=== PATIENT | male | born 1985 | race Two or more races ===

== ENCOUNTER 2024-02-27 11:03 | Inpatient (IN) | payer MEDICAID, SELFPAY ==
[2024-02-27] VITALS (25 sets, daily range): BP systolic 118–168; BP diastolic 63–92; PULSE 58–97; RESP 20–40; TEMP 37.2–38.9; O2SAT 92–99; BMI 30.9
--- NOTE | 2024-02-27 11:13 | EDNOTE_ITS ---
ED SOB =RME/HPI General Chief Complaint: Shortness of Breath/Dyspnea Stated Complaint: difficulty breathing Time Seen by Provider: 02/27/24 11:19 Arrival date/time: 02/27/24 11:03 RME / HPI RME / HPI Narrative: 39 year old male with history of asthma?, GLADYS, pulmonary hypertension, obesity presents to the ED sent by PCP at [facility] for shortness of breath. States symptoms began last night and worsening this morning. Per the PCP office paperwork the patient was given Albuterol treatment, 2 rounds of 0.3mg Epinephrine and patient was still oxygenating at 79%. Related Data Allergies Allergy/AdvReac Type Severity Reaction Status Date / Time No Known Allergies Allergy Verified 06/01/23 20:24 Review of Systems Review of Systems Narrative Review of Systems: Constitutional: DENIES; Fevers Eyes: DENIES; Loss of vision Head/Ear/Nose: DENIES; Loss of hearing Throat: DENIES; Dysphagia Cardiovascular: DENIES; Chest pain, syncope Respiratory: SEE HPI +shortness of breath Gastrointestinal: DENIES; Rectal bleeding or melena. Genitourinary: DENIES; Dysuria (painful or difficult urination) Musculoskeletal: DENIES; Arthralgia (pain in a joint),; Skin: DENIES; Rash Neurological: DENIES; Loss of function or movement Psychiatric: DENIES; recent major life stressor, emotional problem, illicit drug use or abuse Endocrinology: DENIES; Weight change Hematologic/Lymphatic: DENIES; Abnormal bruising Allergic/Immunologic: DENIES; Urticaria (hives) Past Medical History Past Medical History CARDIAC: Negative Congestive Heart Failure RESPIRATORY: Positive Asthma; Negative Chronic Obstructive Pulmonary Disease (COPD) GENITOURINARY: Negative Renal Disease ENDOCRINE: Negative Diabetes Mellitus Type 1 or Diabetes Mellitus Type 2 Social History SMOKING STATUS: Never smoker ED Exam Narrative Physical exam: Physical Exam: General: The vital signs were reviewed. Patient is hypoxic in the upper 70s low 80s on room air comes up to the mid 90s once he is titrated with high flow to 25 L his mental status seems to be somewhat confused initially but improved with oxygenation. He has an obvious cough there is no stridor, he is well-developed with warm extremities. Temperature done soon after arrival reveals to have a fever. Heart rates in the 90s his blood pressure is within normal limits Head & Scalp: Normocephalic, atraumatic. Face: Appears normal and is without lesions, deformity. Ears: Left external pinna appears normal. Right external pinna appears normal. Eyes: The sclera is anicteric. No obvious photophobia. The Left and Right Orbit/Lid/Conjunctiva appears normal without swelling, discoloration or injection. Nose: The nose is without deformity, discharge or tenderness; Throat: Appears normal. The mucous membranes are pink and moist without exudates, redness or mass seen. The tongue appears normal. Neck: The neck is supple and no apparent mass or adenopathy. Chest: The chest wall is normal in size and symmetry and has no chest wall tenderness or crepitus. Tachypnea with bilateral rales in the mid and lower l leann smyth. There are some mild wheezing bilaterally breath sounds are diminished bilaterally but present Cardiovascular: Regular rate and rhythm; No murmurs, rubs, or gallops; Gastrointestinal: The abdomen appears normal. No obvious hernias or mass. The abdomen is soft and benign, non-distended, with no pain, no guarding and no rebound tenderness. Bowel sounds are present and normal sounding. No CVA tenderness. Genitourinary: Normal inspection Back/Spine: Normal inspection nontender Extremities/Musculoskeletal/lymphatic: The bilateral upper and lower extremities are warm. There is no evidence of arterial insufficiency. There is no evidence of venous insufficiency/edema. The patient spontaneously moves bilateral upper and lower extremities with no pain and no limitation of movement. There is no apparent, injury or trauma. Skin: The skin is warm, dry and intact. No rashes. No petechia. No purpura. No abnormal bruising. The color is appropriate with no cyanosis. Mental status/Psychiatric: Mental status is appears to have a dull affect but answering questions and engaging accordingly. Neurological: The patient is awake, alert, interactive, cordial, cooperative and is oriented to name and situation. The patient follows commands and answers historical question with no impairment. There is no visual disturbance apparent. The pupils are equal and reactive bilaterally with normal eye movements and no diplopia The bilateral upper and lower extremities have normal strength, normal range of motion and normal functioning. The gait, station and balance were not tested due to acuity Course Course Course Narrative: chest xray ordered to help determine etiology of shortness of breath. Quality Measures none Orders Category Date Time Status Admit to Inpatient Status Routine Admission 02/27/24 16:18 Active Patient Condition Routine Admission 02/27/24 16:18 Ordered Bedside Blood Glucose NOW Care 02/27/24 11:19 Active Bedside COVID-19 Antigen Test NOW Care 02/27/24 11:25 Active Bedside Influenza A&B Antigen Test NOW Care 02/27/24 11:25 Completed BiPAP / CPAP NOW Care 02/27/24 16:[address] Screening NOW Care 02/27/24 16:18 Active EKG (ED ONLY) *Do not use* NOW Care 02/27/24 11:19 Completed Notify provider NEEDED Care 02/27/24 16:[address] chest w con Stat Exams 02/27/24 16:17 Ordered EKG (ED Only) Stat Exams 02/27/24 11:19 Ordered XR chest 1V portable Stat Exams 02/27/24 11:19 Completed ABG [Arterial Blood Gas] Stat Lab 02/27/24 16:09 Completed Alcohol, Blood Medical Stat Lab 02/27/24 11:20 Completed Ambulatory Hemoglobin A1C Routine Lab 02/27/24 Ordered B-Type Natriuretic Peptide Stat Lab 02/27/24 11:36 Completed Blood Culture (Lab) Stat Lab 02/27/24 11:20 Received CBC AM DRAW Lab 02/28/24 05:00 Ordered CBC AM DRAW Lab 02/29/24 05:00 Ordered CBC AM DRAW Lab 03/01/24 05:00 Ordered CBC Stat Lab 02/27/24 11:20 Completed Comprehensive Metabolic Panel AM DRAW Lab 02/28/24 05:00 Ordered Comprehensive Metabolic Panel AM DRAW Lab 02/29/24 05:00 Ordered Comprehensive Metabolic Panel AM DRAW Lab 03/01/24 05:00 Ordered Comprehensive Metabolic Panel Stat Lab 02/27/24 11:20 Completed Drug Screen,Urine Stat Lab 02/27/24 12:15 Completed Lactate (Lactic Acid) Stat Lab 02/27/24 11:36 Completed Magnesium AM DRAW Lab 02/28/24 05:00 Ordered Magnesium AM DRAW Lab 02/29/24 05:00 Ordered Magnesium AM DRAW Lab 03/01/24 05:00 Ordered Phosphorous AM DRAW Lab 02/28/24 05:00 Ordered Phosphorous AM DRAW Lab 02/29/24 05:00 Ordered Phosphorous AM DRAW Lab 03/01/24 05:00 Ordered Procalcitonin Stat Lab 02/27/24 11:20 Completed Prothrombin Time with INR Stat Lab 02/27/24 11:20 Completed RSV [Respiratory Syncytial Virus Ag] Stat Lab 02/27/24 12:00 Completed RSV [Respiratory Syncytial Virus Ag] Stat Lab 02/27/24 12:44 Ordered Sputum Culture and Gram Stain Stat Lab 02/27/24 16:24 Ordered Troponin I Stat Lab 02/27/24 11:20 Completed Type and Screen Stat Lab 02/27/24 11:36 Completed Urinalysis, C/S if Indicated Stat Lab 02/27/24 12:15 Completed Venous Blood Gas Stat Lab 02/27/24 11:36 Completed ALBUTEROL RT 0.5ml [Proventil Rt 0.5ml] Med 02/27/24 11:19 Discontinued 10 mg INH X1 ONE Acetaminophen Tab [Tylenol ES Tab] Med 02/27/24 12:45 Discontinued 1,000 mg PO X1 ONE Acetaminophen Tab [Tylenol Tab] Med 02/27/24 16:18 Active 650 mg PO Q6H PRN Acetaminophen Tab [Tylenol Tab] Med 02/27/24 16:18 Active 650 mg PO Q6H PRN Albuterol/Ipratr Rt Leeanne [Duoneb Rt Leeanne] Med 02/27/24 19:00 Ordered 3 ml INH Q4HRRT Azithromycin Inj [Zithromax Inj] 500 mg Med 02/27/24 16:25 Discontinued Sodium Chloride 0.9% 250 ml [Ns] 250 ml IV QDAY Azithromycin Po [Zithromax PO] Med 02/27/24 16:45 Active 500 mg PO QDAY Docusate Sod [Colace] Med 02/27/24 16:30 Active 100 mg PO QDAY Ipratropium Frazee Rt Leeanne [Atrovent Rt Leeanne] Med 02/27/24 11:19 Discontinued 0.5 mg INH X1 ONE Lactulose Syrup [Enulose Syrup] Med 02/27/24 16:30 Discontinued 10 gm PO QDAY Lactulose Syrup [Enulose Syrup] Med 02/27/24 21:00 Active 20 gm PO BID MethylPREDNISolone.* [SoluMEDROL Inj] Med 02/27/24 11:19 Discontinued 125 mg IVP X1 ONE Morphine Inj Med 02/27/24 16:18 Active 1 mg IVP Q4H PRN Ondansetron Inj [Zofran Inj] Med 02/27/24 16:18 Active 4 mg IV Q6HR PRN Pantoprazole [Protonix] Med 02/28/24 09:00 Active 40 mg PO QDAY Piper/Tazo 3.375 gm [Zosyn] Med 02/27/24 12:12 Discontinued 3.375 gm in 50 ml IV X1 Sodium Chloride 0.9% 1000 ml [Ns] 1,000 ml Med 02/27/24 16:27 Active IV 999 mls/hr Sodium Chloride 0.9% 1000 ml [Ns] 2,000 ml Med 02/27/24 11:19 Active IV 150 mls/hr Sodium Chloride Rt Leeanne 10% [NS Rt Leeanne 10%] Med 02/27/24 16:24 Discontinued 5 ml INH X1 ONE Vancomycin Inj 1,000 mg Med 02/27/24 12:12 Discontinued Sodium Chloride 0.9% 250 ml [Ns] 250 ml IV X1 cefTRIAXone/D5w 1gm IV premix [Rocephin/D5w 1gm IV Med 02/27/24 16:25 Active premix] 50 ml IV Q12HR Code Status Routine Oth 02/27/24 16:18 Ordered Oxygen Delivery NOW RT 02/27/24 11:30 Active Sputum Induction PRN RT 02/27/24 16:30 Ordered Vital Signs Vital signs: Vital Signs Temperature 101.8 F H 02/27/24 11:20 Pulse Rate 93 02/27/24 11:20 Respiratory Rate 35 H 02/27/24 11:20 Blood Pressure 149/92 H 02/27/24 11:20 Pulse Oximetry (%) 92 L 02/27/24 11:20 Oxygen Delivery Method Oxy Mask 02/27/24 11:20 Oxygen Flow Rate 15 02/27/24 11:20 Shortness of Breath / Dyspnea MDM Narrative MDM Narrative:: Rocio Hays am scribing for and in the presence of Dr. Ferrari. Patient 39-year-old who presents with tachypnea hypoxemia short of breath fever with a chest x-ray read by myself reveals bilateral infiltrates in the lower lung smyth. The heart size appears to be a little bit larger than normal. There is no effusion seen. Soft tissues and bony structures appear to be intact. Twelve-lead EKG was done earlier which reveals a sinus rhythm rate [address] elevation IA. Patient got continuous breathing treatments for the mild wheezing and there seems to be some improvement although he still requires high flow oxygen. Further medical workup reveals blood alcohol negative drug screen negative. Urinalysis was positive for only 4 red cells no white cells were seen. He is quite dehydrated specific already of 1038. BNP was elevated 547 troponin is negative. AST ALT are negative BUN 11 creatinine 1.0 electrolytes are within normal limits. Venous blood gas shows pH of 7.43 pCO2 of 45 therefore there is no significant respiratory acidosis and minimal CO2 retention White count came back elevated 21.7. Reevaluation of patient shows his breathing to be much improved. Because of the white count respiratory distress hypoxemia bilateral pneumonia and fever he was started on Vanco and Zosyn to cover for sepsis. COVID and influenza came back negative. Hospitalist was contacted at 1535 hrs. and they will admit the patient for bilateral pneumonia hypoxemia Because of the respiratory distress and significant hypoxemia and pneumonia there is a critical care patient. Patient data External records reviewed:: [facility] previous records (I reviewed admission from 09/14/2023 through 09/16/2023) and PCP records (I reviewed paperwork from ofice visit today ) Clinical information provided by:: patient Social determinants that could affect healthcare access:: none Patient has the following chronic illnesses:: asthma?, GLADYS, pulmonary hypertension, obesity How is presenting disease/condition affected by chronic disease/condition?: exacerbated by Evaluation data The following diagnostics were reviewed and interpreted by me:: lab results, radiology exam(s) and EKG tracing(s) (Sinus rhythm, rate 84, no STEMI ) Lab and/or radiology exams considered but not ordered:: None Interpretation Summary: Ordering Physician: Sinan Ferrari MD Date of Service: 02/27/24 Procedure(s): XR chest 1V portable Accession Number(s): [id number] cc: Yifan Diego MD; Sinan Ferrari MD; Jonathan Powers MD~ Examination: AP chest single view TECHNIQUE: AP portable semiupright chest single view Exam date and time: February 27, 2024 1121 hours Comparison September 14, 2023 INDICATIONS: Onset chest pain today. FINDINGS: Mild enlargement cardiac contour Prominent vascular congestion Early pneumonia at the lung bases IMPRESSION: Early pneumonia at the lung bases Dictated By: Jonathan Powers MD Signed By: <Electronically signed by Jonathan Powers MD in OV> 02/27/24 1138 Medications / Prescriptions Medications or Prescriptions considered but not ordered:: None Medication administrations:: Medication Administration History Acetaminophen (Acetaminophen 325 Mg Tablet) 650 mg PO Q6H PRN PRN Reason: Fever >101.5 Stop: 03/28/24 16:17 Acetaminophen (Acetaminophen 325 Mg Tablet) 650 mg PO Q6H PRN PRN Reason: PAIN SCALE 1-3 (mild Stop: 03/28/24 16:17 Albuterol/Ipratropium (Albuterol/Ipratropium (Duoneb) Rt Leeanne 3 Ml Nebu) 3 ml INH Q4HRRT DEWAYNE Stop: 03/28/24 18:59 Azithromycin (Azithromycin 250 Mg Tablet) 500 mg PO QDAY DEWAYNE Stop: 03/05/24 16:44 Docusate Sodium (Docusate Sod 100 Mg Capsule) 100 mg PO QDAY DEWAYNE; Protocol Stop: 03/28/24 16:29 Sodium Chloride (Ns) 2,000 mls @ 150 mls/hr IV .[id number] ONE Stop: 02/28/24 00:38 Last Admin: 02/27/24 11:33 Dose: 150 mls/hr Documented By: VG Ceftriaxone Sodium/Dextrose (Rocephin/D5w 1gm Iv Premix) 50 mls @ 100 mls/hr IV Q12HR DEWAYNE Stop: 03/05/24 16:24 Sodium Chloride (Ns) 1,000 mls @ 999 mls/hr IV .Q1H1M ONE Stop: 02/27/24 17:27 Lactulose (Lactulose Syrup 20 Gm/30 Ml Udc) 20 gm PO BID DEWAYNE; Protocol Stop: 03/28/24 20:59 Morphine Sulfate (Morphine Sulf Inj 10 Mg/Ml Vial) 1 mg IVP Q4H PRN PRN Reason: PAIN SCALE 7-10 (Severe Stop: 03/03/24 16:17 Ondansetron HCl (Ondansetron Inj 2 Mg/Ml Inj 2 Ml) 4 mg IV Q6HR PRN; Protocol PRN Reason: NAUSEA OR VOMITING Stop: 03/28/24 16:17 Pantoprazole Sodium (Pantoprazole 40 Mg Tablet) 40 mg PO QDAY DEWAYNE Stop: 03/29/24 08:59 Discontinued Medications Acetaminophen (Acetaminophen 500 Mg Tablet) 1,000 mg PO X1 ONE Stop: 02/27/24 12:46 Last Admin: 02/27/24 12:52 Dose: 1,000 mg Documented By: VG Albuterol (Albuterol Rt 2.5 Mg/0.5 Ml Nebu) 10 mg INH X1 ONE Stop: 02/27/24 11:20 Last Admin: 02/27/24 11:40 Dose: 10 mg Documented By: EV Vancomycin HCl 1,000 mg/ (Sodium Chloride) 250 mls @ 250 mls/hr IV X1 ONE Stop: 02/27/24 13:11 Last Infusion: 02/27/24 16:07 Dose: Infused Documented By: Admin: 02/27/24 13:44 Dose: 250 mls/hr Documented By: VG Piperacillin/Tazobactam/Dextrose (Zosyn) 3.375 gm in 50 mls @ 100 mls/hr IV X1 ONE Stop: 02/27/24 12:41 Last Infusion: 02/27/24 13:38 Dose: Infused Documented By: Admin: 02/27/24 12:53 Dose: 100 mls/hr Documented By: VG Azithromycin 500 mg/ Sodium (Chloride) 250 mls @ 250 mls/hr IV QDAY DEWAYNE Stop: 03/05/24 16:24 Ipratropium Frazee (Ipratropium Rt 0.5 Mg/ 2.5 Ml Nebu) 0.5 mg INH X1 ONE Stop: 02/27/24 11:20 Last Admin: 02/27/24 11:40 Dose: 0.5 mg Documented By: EV Lactulose (Lactulose Syrup 20 Gm/30 Ml Udc) 10 gm PO QDAY [facility]; Protocol Stop: 03/28/24 16:29 Methylprednisolone Sodium Succinate (Methylprednisolone Sod Succ 62.5 Mg/Ml 2ml Vial) 125 mg IVP X1 ONE Stop: 02/27/24 11:20 Last Admin: 02/27/24 11:24 Dose: 125 mg Documented By: VG Sodium Chloride (Sodium Chloride Rt 10% 15 Ml Nebu) 5 ml INH X1 ONE Stop: 02/27/24 16:25 See above Consultations Consultation(s) initiated? (list below): Yes Consultation #1 (Physician, Specialty, Details): See above under MDM narrative. Diagnosis Shortness of Breath Differential Diagnosis: acute exacerbation of chronic obstructive airways disease, congestive heart failure, community acquired pneumonia and other (Viral illness ) Most likely diagnosis given after review of the tests above:: Bilateral pneumonia CHF Acute respiratory distress Hypoxemia Leukocytosis Admission Indicated Admission indicated?: indicated Admission Request Was there a request for admission?: Yes Admission Attestation Admission request attestation: Discussed case with [] from Hospitalist service regarding admission. Discussed patients ED course, exam findings, labs, and radiology results. The Hospitalist [agrees,declines] to accept the patient for admission. Disposition Plan Disposition Plan: Admit Critical Care Time Critical Care Time Critical Care Time: Yes Total Critical Care Time (min.): 55 Attestation: The high probability of sudden, clinically significant deterioration in the patient's condition required the highest level of my preparedness to intervene urgently. The services I provided to this patient were to treat and/or prevent clinically significant deterioration. Services included the following: chart data review, reviewing nursing notes and/or old charts, documentation time, technical support consultant collaboration regarding findings and treatment options, medication orders and management, direct patient care, vital sign assessments and ordering, interpreting and reviewing diagnostic studies and lab tests. Aggregate critical care time includes only time during which I was engaged in work directly related to the patient's care, as described above, whether at bedside or elsewhere in the Emergency Department. It did not include time spent performing other reported procedures or the services of residents, students, nurses or physician assistants. Discharge Plan Plan Patient Disposition: Admit Acute Care w/in Hospital Disposition Comment: Dr. Alonso Prescriptions/Referrals Referrals: Yifan Diego MD [Primary Care Provider] - In 1 week Problem List Clinical Impression: Bilateral pneumonia, Congestive heart failure, Acute respiratory distress, Hypoxemia, Leukocytosis Patient/Caregiver Discharge Instructions Print Language: French
--- NOTE | 2024-02-27 11:19 | XR_ITS ---
Examination: AP chest single view TECHNIQUE: AP portable semiupright chest single view Exam date and time: February 27, 2024 1121 hours Comparison September 14, 2023 INDICATIONS: Onset chest pain today. FINDINGS: Mild enlargement cardiac contour Prominent vascular congestion Early pneumonia at the lung bases IMPRESSION: Early pneumonia at the lung bases
--- NOTE | 2024-02-27 11:19 | EKG_ITS ---
[facility] Test Date: 2024-02-27 Pat Name: JESENIA DELGADO Department: Room: - Gender: Male Slots Manager: : 1985 Requested By: Sinan Ferrari Order Number: [id number] Reading MD: Sinan Ferrari Measurements Intervals [place] Rate: 73 P: 68 RI: 150 QRS: 86 QRSD: 102 T: 13 QT: 379 QTc: 419 Interpretive Statements SINUS RHYTHM MODERATE T-WAVE ABNORMALITY, CONSIDER ANTERIOR ISCHEMIA [-0.1+ mV T WAVE IN V3/V4] No previous ECG available for comparison /store/S0/[id number].pdf
[2024-02-27] MEDS: MethylPREDNISolone SOD SUCC 62.5 MG/ML 2ML VIAL 125 MG IVP (11:24)
[2024-02-27] MEDS: SODIUM CHLORIDE 0.9% 1000 ML 2,000 ML 150 ML IV (11:33)
[2024-02-27] MEDS: ALBUTEROL RT 2.5 MG/0.5 ML NEBU 10 MG INH ×2 (11:40→17:06)
[2024-02-27] MEDS: IPRATROPIUM RT 0.5 MG/ 2.5 ML NEBU INH (11:40)
[2024-02-27 11:50] LABS: Lactate (Lactic Acid) 1.8 mMol/L (0.4-2.0)
[2024-02-27 11:51] LABS: Base Excess, Venous 4 (-3-3); O2 Saturation, Venous 97 % (96-97); PCO2, Venous 45 mmHg (36-56); PO2, Venous 92 mmHg (15-58); pH, Venous 7.43 (7.33-7.66)
[2024-02-27 11:52] LABS: Basophils # (Auto) 0.1 Thou/mm3 (0.0-0.2); Basophils % (Auto) 0 % (0-2.5); Eosinophils # (Auto) 0.1 Thou/mm3 (0.0-0.5); Eosinophils % (Auto) 0 % (0-10); Hematocrit 49.3 % (41.0-53.0); Hemoglobin 15.9 g/dL (13.5-16.0); Immature Granulocytes % (Auto) 1 % (0-0); Immature Granulocytes Auto 0.14 Thou/mm3 (0.00-0.00); Lymphocytes % (Auto) 9 % (10-50); Mean Corpuscular HGB Conc 32.3 g/dl (31.0-37.0); Mean Corpuscular Hemoglobin 31.1 pg (25.0-35.0); Mean Corpuscular Volume 96 fL (80-100); Monocytes # (Auto) 1.8 Thou/mm3 (0.0-0.8); Monocytes % (Auto) 8 % (0-12); Neutrophils # (Auto) 17.6 Thou/mm3 (1.8-7.7); Neutrophils % (Auto) 81 % (37-80); Nucleated Red Blood Cell % 0 /100 WBC (0); Platelet Count 245 Thou/mm3 (140-440); RDW Standard Deviation 47.5 fL (35.1-43.9); Red Blood Count 5.12 Miln/mm3 (4.50-5.90); White Blood Count 21.7 Thou/mm3 (3.8-10.6)
[2024-02-27 12:10] LABS: B-Type Natriuretic Peptide 547 pg/mL (0-100)
[2024-02-27 12:12] LABS: INR 1.1 (0.9-1.3); Prothrombin Time 11.9 Seconds (9.0-12.2)
[2024-02-27 12:18] LABS: Alanine Aminotransferase 32 U/L (10-49); Albumin, Serum 4.4 gm/dL (3.5-5.0); Albumin/Globulin Ratio 1.4 (1.2-2.2); Alcohol, Blood Medical < 3.0 mg/dL (0-10.0); Alkaline Phosphatase 102 U/L (46-116); Anion Gap 4 (7-16); Aspartate Amino Transferase 23 U/L (0-34); BUN/Creatinine Ratio 11 Ratio (12-20); Bilirubin,Total 0.8 mg/dL (0.3-1.2); Blood Urea Nitrogen 11 mg/dL (9-23); Calcium 8.9 mg/dL (8.3-10.6); Calcium (Corrected) 8.9 mg/dL (8.5-10.1); Carbon Dioxide 33.8 mMol/L (20.0-31.0); Chloride 100 mMol/L (98-107); Globulin 3.1 gm/dL (2.3-3.5); Glucose 140 mg/dL (74-106); Osmolality,Calculated 277 (275-295); Procalcitonin 0.15 ng/ml (0.0-0.49); Sodium 138 mMol/L (136-145); Total Protein 7.5 gm/dL (5.7-8.2); Troponin I 0.027 ng/mL (0.0-0.045); eGFR > 60 See Note
[2024-02-27 12:38] LABS: Bilirubin,Urine Negative (Negative); Blood,Urine Negative (Negative); Clarity,Urine Clear (Clear/Hazy); Collection Type, Urine Clean Catch; Color,Urine Yellow (Lt Yel-Yel); Culture Indicated,Urine Not Indicated; Glucose, Urine Negative (Negative); Ketones,Urine Negative (Negative); Leukocyte Esterase,Urine Negative (Negative); Nitrite,Urine Negative (Negative); Protein,Urine 1+ (Neg - Trace); RBC,Urine 4 /hpf (0-3); Specific Gravity,Urine 1.038 (1.001-1.035); Squamous Epithelial Cell,Urine 1 /hpf (0-5); Urobilinogen,Urine Negative mg/dL (0.0-1.0); WBC,Urine 1 /hpf (0-5)
[2024-02-27 12:44] LABS: Amphetamine/Methamp Scrn,U Negative (Negative); Barbiturate Screen,Urine Negative (Negative); Benzodiazepines Screen,Urine Negative (Negative); Benzoylecgonine Screen, Ur Negative (Negative); Fentanyl Screen,Urine Negative (Negative); Opiate Screen,Urine Negative (Negative); THC Screen,Urine Negative (Negative)
[2024-02-27] MEDS: ACETAMINOPHEN 500 MG TABLET 1000 MG PO (12:52)
[2024-02-27] MEDS: PIPER/TAZO 3.375 GM 3.375 GM/50 ML BAG IV (12:53)
[2024-02-27 13:12] LABS: Respiratory Syncytial Virus Ag Negative (Negative)
[2024-02-27] MEDS: Vancomycin Inj 1,000 MG in SODIUM CHLORIDE 0.9% 250 ML 250 ML 250 MG IV (13:44)
--- NOTE | 2024-02-27 16:17 | XR_ITS ---
Examination: CT chest with intravenous contrast 2-D sagittal and coronal reconstructions Exam date and time: February 27, 2024 1818 hrs. Comparison September 14, 2023 Indications: Acute shortness of breath beginning yesterday CTDI:vol (mGy) 17.6 DLP: (mGycm) 645 Technique: Multiple axial sections of the thorax have been obtained. Sections have been obtained, 3 mm slice thickness. Mediastinal and lung density settings have been obtained. Intravenous contrast administered, 60 cc Isovue-370. 2-D sagittal, coronal images obtained. Low dose protocols were performed. One or more of the following dose reduction techniques were used; automated exposure control, adjustment of the mA and/or KV according to patient size, use of iterative reconstruction technique. Findings: No thoracic aortic aneurysmal dilatation or dissection Enlarged main pulmonary artery segment 37 mm, no pulmonary artery emboli on this non-CTA study Significant edema and/or pneumonia in the mid and lower lung zones bilaterally Moderate vascular congestion Diffuse fatty infiltration throughout the liver, liver is mildly irregular in contour No gallstones Spleen not enlarged No pancreatic or adrenal mass Kidneys partially visualized no hydronephrosis Impression: Significant bilateral pneumonia Suspicious for mild associated heart failure
[2024-02-27 16:23] LABS: Base Excess 3 (-3-3); HCO3 33 mEq/L (20-26); Inspired Oxygen, FIO2 65 %; O2 Saturation 98 % (91-98); PCO2 74 mmHg (32.0-48.0); PO2 101 mmHg (83-108); pH, Arterial 7.27 (7.35-7.45)
[2024-02-27 16:28] LABS: Allen Test Performed/OK; Puncture Site Left Radial
--- NOTE | 2024-02-27 16:29 | PD.RESHP ---
Documentation for date of: 02/27/24 [facility] History of Present Illness History of present illness: This is a 39-year-old male PMHx of questionable asthma, GLADYS, pulmonary hypertension, obesity presenting to ED with SOB. He was in normal state of health until this morning when he woke up with sudden SOB, and blood stingy cough as well as yellow sputum. He was seen by his PCP today for his SOB and was given ALBUTEROL x 2 as well as EPINEPHRINE without resolution of his symptoms, continued to desat 79% after treatment. He works in the [employer]. He states his son had respiratory illness couple weeks ago which has resolved. Denies headaches, confusion, fever, chills, chest pain, abdominal pain, N/V/D/C, or urinary symptoms. ED COURSE: BP 149/92, HR 93, RR 35, T101.8, satting 92% on 15 L 70% FiO2. Labs showed leukocytosis of 21.7, Exam Vital Signs Temp Pulse Resp BP Pulse Ox O2 Del Method O2 Flow Rate 99.4 F 65 29 H 133/83 H 98 High Flow Nasal Cannula 25 02/27/24 16:00 02/27/24 16:00 02/27/24 16:00 02/27/24 16:00 02/27/24 16:00 02/27/24 16:00 02/27/24 13:58 FiO2 65 02/27/24 16:00 Results: Labs 02/27/24 11:20 02/27/24 11:20 Labs: Short CBC 02/27/24 Range/Units 11:20 WBC 21.7 H (3.8-10.6) Thou/mm3 Hgb 15.9 (13.5-16.0) g/dL Hct 49.3 (41.0-53.0) % Plt Count 245 (140-440) Thou/mm3 BMP 02/27/24 11:20 Sodium 138 Potassium 4.0 Chloride 100 Carbon Dioxide 33.8 H BUN 11 Creatinine 1.0 Glucose 140 H Calcium 8.9 Cardiac Enzymes 02/27/24 Range/Units 11:20 Troponin I 0.027 (0.0-0.045) ng/mL Liver Function 02/27/24 Range/Units 11:20 Total Bilirubin 0.8 (0.3-1.2) mg/dL AST 23 (0-34) U/L ALT 32 (10-49) U/L Alkaline Phosphatase 102 (46-116) U/L Albumin 4.4 (3.5-5.0) gm/dL Urine 02/27/24 Range/Units 12:15 Urine Color Yellow (Lt Yel-Yel) Urine Clarity Clear (Clear/Hazy) Urine pH 6.0 (5.0-7.0) Ur Specific [place] 1.038 H (1.001-1.035) Urine Protein 1+ A (Neg - Trace) Urine Glucose (UA) Negative (Negative) ABG Interpretation ABG results: 02/27/24 02/27/24 11:36 16:09 ABG pH 7.27 L ABG pCO2 74 H* ABG pO2 101 ABG HCO3 33 H ABG O2 Saturation 98 ABG Base Excess 3 VBG pH 7.43 VBG pCO2 45 VBG pO2 92 H VBG Base Excess 4 H Quality Measures Quality Measures none Medications Home Medications and Allergies Allergies Allergy/AdvReac Type Severity Reaction Status Date / Time No Known Allergies Allergy Verified 06/01/23 20:24 Visit Medications Acetaminophen (Acetaminophen 325 Mg Tablet) 650 mg PO Q6H PRN PRN Reason: Fever >101.5 Stop: 03/28/24 16:17 Acetaminophen (Acetaminophen 325 Mg Tablet) 650 mg PO Q6H PRN PRN Reason: PAIN SCALE 1-3 (mild Stop: 03/28/24 16:17 Albuterol/Ipratropium (Albuterol/Ipratropium (Duoneb) Rt Leeanne 3 Ml Nebu) 3 ml INH Q4HRRT [facility] Stop: 03/28/24 18:59 Docusate Sodium (Docusate Sod 100 Mg Capsule) 100 mg PO QDAY [facility]; Protocol Stop: 03/28/24 16:29 Sodium Chloride (Ns) 2,000 mls @ 150 mls/hr IV .[id number] ONE Stop: 02/28/24 00:38 Last Admin: 02/27/24 11:33 Dose: 150 mls/hr Ceftriaxone Sodium/Dextrose (Rocephin/D5w 1gm Iv Premix) 50 mls @ 100 mls/hr IV Q12HR [facility] Stop: 03/05/24 16:24 Azithromycin 500 mg/ Sodium (Chloride) 250 mls @ 250 mls/hr IV QDAY [facility] Stop: 03/05/24 16:24 Sodium Chloride (Ns) 1,000 mls @ 999 mls/hr IV .Q1H1M ONE Stop: 02/27/24 17:27 Lactulose (Lactulose Syrup 20 Gm/30 Ml Udc) 20 gm PO BID [facility]; Protocol Stop: 03/28/24 20:59 Morphine Sulfate (Morphine Sulf Inj 10 Mg/Ml Vial) 1 mg IVP Q4H PRN PRN Reason: PAIN SCALE 7-10 (Severe Stop: 03/03/24 16:17 Ondansetron HCl (Ondansetron Inj 2 Mg/Ml Inj 2 Ml) 4 mg IV Q6HR PRN; Protocol PRN Reason: NAUSEA OR VOMITING Stop: 03/28/24 16:17 Pantoprazole Sodium (Pantoprazole 40 Mg Tablet) 40 mg PO QDAY [facility] Stop: 03/29/24 08:59 Discontinued Medications Acetaminophen (Acetaminophen 500 Mg Tablet) 1,000 mg PO X1 ONE Stop: 02/27/24 12:46 Last Admin: 02/27/24 12:52 Dose: 1,000 mg Albuterol (Albuterol Rt 2.5 Mg/0.5 Ml Nebu) 10 mg INH X1 ONE Stop: 02/27/24 11:20 Last Admin: 02/27/24 11:40 Dose: 10 mg Vancomycin HCl 1,000 mg/ (Sodium Chloride) 250 mls @ 250 mls/hr IV X1 ONE Stop: 02/27/24 13:11 Last Infusion: 02/27/24 16:07 Dose: Infused Piperacillin/Tazobactam/Dextrose (Zosyn) 3.375 gm in 50 mls @ 100 mls/hr IV X1 ONE Stop: 02/27/24 12:41 Last Infusion: 02/27/24 13:38 Dose: Infused Ipratropium [place] (Ipratropium Rt 0.5 Mg/ 2.5 Ml Nebu) 0.5 mg INH X1 ONE Stop: 02/27/24 11:20 Last Admin: 02/27/24 11:40 Dose: 0.5 mg Lactulose (Lactulose Syrup 20 Gm/30 Ml Udc) 10 gm PO QDAY [facility]; Protocol Stop: 03/28/24 16:29 Methylprednisolone Sodium Succinate (Methylprednisolone Sod Succ 62.5 Mg/Ml 2ml Vial) 125 mg IVP X1 ONE Stop: 02/27/24 11:20 Last Admin: 02/27/24 11:24 Dose: 125 mg Sodium Chloride (Sodium Chloride Rt 10% 15 Ml Nebu) 5 ml INH X1 ONE Stop: 02/27/24 16:25
[2024-02-27] MEDS: SODIUM CHLORIDE RT SOL 0.9% 3 ML NEBU INH (17:06)
--- NOTE | 2024-02-27 17:15 | PD.RESEVENT ---
Documentation for date of: 02/27/24 Event Note Event Note: This is a 39-year-old male PMHx of questionable asthma, GLADYS, pulmonary hypertension, obesity presenting to ED with SOB. He was in normal state of health until this morning when he woke up with sudden SOB, and blood stingy cough as well as yellow sputum. He was seen by his PCP today for his SOB and was given ALBUTEROL x 2 as well as EPINEPHRINE without resolution of his symptoms, continued to desat 79% after treatment. He works in the [employer]. He states his son had respiratory illness couple weeks ago which has resolved. Per , he has been having fever and chills over the last week. Denies headaches, confusion, chest pain, abdominal pain, N/V/D/C, or urinary symptoms. ED COURSE: BP 149/92, HR 93, RR 35, T101.8, satting 92% on 15 L 70% FiO2. Labs showed leukocytosis of 21.7, BNP 545, normal troponins, normal lactate. ABG showed respiratory acidosis pH 7.27, CO2 74, O2 101, bicarb 33. PF ratio of 150 suggested moderate ARDS. CXR showed bilateral opacity, likely early ARDS, and diffuse vascular congestion as well as as early bibasilar pneumonia. On exam, bronchial sounds heard along with wheezing, patient was slightly altered, with increased drowsiness. ICU team was consulted who recommended starting BiPAP followed by intubation and ICU admission. Patient continued care under the ICU team. Patient case was discussed with attending, Dr. Gavin DO, and senior residents Dr. Yonny Shine and Dr. Amos. Jus Armas DO PGYI
[2024-02-27 17:21] LABS: Glucose Estimated Average 126 mg/dL (80-131)
[2024-02-27] MEDS: cefTRIAXone/D5w 1gm IV premix 50 ML IV (17:26)
[2024-02-27] MEDS: DOCUSATE SOD 100 MG CAPSULE PO (17:29)
[2024-02-27] MEDS: AZITHROMYCIN 250 MG TABLET 500 MG PO (17:29)
--- NOTE | 2024-02-27 17:33 | EKG_ITS ---
[facility] Test Date: 2024-02-27 Pat Name: JESENIA DELGADO Department: Room: [facility] Gender: Male Rework Operator: : 1985 Requested By: Jus Armas Order Number: [id number] Reading MD: Jus Armas Measurements Intervals [place] Rate: 84 P: 58 [place]: 140 QRS: 80 QRSD: 97 T: 26 QT: 332 QTc: 392 Interpretive Statements SINUS RHYTHM POSSIBLE LEFT ATRIAL ENLARGEMENT [-0.1mV P WAVE IN V1/V2] MODERATE T-WAVE ABNORMALITY, CONSIDER ANTEROLATERAL ISCHEMIA [-0.1+ mV T WAVE IN V3-V6] No previous ECG available for comparison /store/S0/[id number]/ecg/[id number].pdf
[2024-02-27 18:02] LABS: Base Excess 5 (-3-3); HCO3 33 mEq/L (20-26); Inspired Oxygen, FIO2 30 %; O2 Saturation 91 % (91-98); PCO2 64 mmHg (32.0-48.0); PO2 61 mmHg (83-108); pH, Arterial 7.32 (7.35-7.45)
[2024-02-27 18:05] LABS: Allen Test Performed/OK; Puncture Site Left Radial
--- NOTE | 2024-02-27 18:50 | PC.RT ---
1900 tx not given due to pt was still on cont tx.
--- NOTE | 2024-02-27 19:15 | ESHP_ITS ---
Documentation for date of: 02/27/24 [facility] History of Present Illness History of present illness: This is a 39-year-old male PMHx of questionable asthma, GLADYS, pulmonary hypertension, obesity presenting to ED with SOB. He was in normal state of health until this morning when he woke up with sudden SOB, and blood stingy cough as well as yellow sputum. He was seen by his PCP today for his SOB and was given ALBUTEROL x 2 as well as EPINEPHRINE without resolution of his symptoms, continued to desat 79% after treatment. He works in the [employer]. He states his son had respiratory illness couple weeks ago which has resolved. Per , he has been having fever and chills over the last week. Denies headaches, confusion, chest pain, abdominal pain, N/V/D/C, or urinary symptoms. ED COURSE: BP 149/92, HR 93, RR 35, T101.8, satting 92% on 15 L 70% FiO2. Labs showed leukocytosis of 21.7, BNP 545, normal troponins, normal lactate. ABG showed respiratory acidosis pH 7.27, CO2 74, O2 101, bicarb 33. PF ratio of 150 suggested moderate ARDS. CXR showed bilateral opacity, likely early ARDS, and diffuse vascular congestion as well as as early bibasilar pneumonia. On exam, bronchial sounds heard along with wheezing, patient was slightly altered, with increased drowsiness. Patient was given ALBUTEROL treatments and started on high flow in the ED. We will admit the patient to floors for acute hypoxemic respiratory failure and possible ARDS. 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 Oral mucosa is moist. Patent Nares NECK: Supple, nontender, no thyromegaly, no meningismus, no JVD, no step offs CHEST: Symmetrical, atraumatic, and with equal expansion, Nontender on palpation no deformity and no crepitus. CARDIOVASCULAR: RRR, no m/g/r LUNGS: Tachypnea, bilateral bronchial sounds, diffuse wheezing. Symmetrical chest rise. No intercostal subcostal retraction. ABDOMEN: Soft, flat, nontender. No guarding/rebound tenderness/masses. +BS EXTREMITIES: Nontender.? No edema/cyanosis.?Moves all 4 extremities well, with full ROM and good CSM. SKIN: Warm and dry, no jaundice/rashes. MSK: No lumbar or midline, no CVA, no paraspinal muscle spasm or tenderness. NEURO: ESPARZA x4, CN II-XII grossly intact.?No focal neurologic deficits. PSYCHIATRIC: Normal mood and affect, cooperative, no SI or HI or hallucinations. Results: Labs 02/28/24 05:28 02/28/24 05:28 Labs: Short CBC 02/27/24 Range/Units 11:20 WBC 21.7 H (3.8-10.6) Thou/mm3 Hgb 15.9 (13.5-16.0) g/dL Hct 49.3 (41.0-53.0) % Plt Count 245 (140-440) Thou/mm3 BMP 02/27/24 11:20 Sodium 138 Potassium 4.0 Chloride 100 Carbon Dioxide 33.8 H BUN 11 Creatinine 1.0 Glucose 140 H Calcium 8.9 Cardiac Enzymes 02/27/24 Range/Units 11:20 Troponin I 0.027 (0.0-0.045) ng/mL Liver Function 02/27/24 Range/Units 11:20 Total Bilirubin 0.8 (0.3-1.2) mg/dL AST 23 (0-34) U/L ALT 32 (10-49) U/L Alkaline Phosphatase 102 (46-116) U/L Albumin 4.4 (3.5-5.0) gm/dL Urine 02/27/24 Range/Units 12:15 Urine Color Yellow (Lt Yel-Yel) Urine Clarity Clear (Clear/Hazy) Urine pH 6.0 (5.0-7.0) Ur Specific [place] 1.038 H (1.001-1.035) Urine Protein 1+ A (Neg - Trace) Urine Glucose (UA) Negative (Negative) ABG Interpretation ABG results: 02/27/24 02/27/24 02/27/24 11:36 16:09 17:55 ABG pH 7.27 L 7.32 L ABG pCO2 74 H* 64 H D ABG pO2 101 61 L D ABG HCO3 33 H 33 H ABG O2 Saturation 98 91 ABG Base Excess 3 5 H VBG pH 7.43 VBG pCO2 45 VBG pO2 92 H VBG Base Excess 4 H Quality Measures Quality Measures none Medications Home Medications and Allergies Allergies Allergy/AdvReac Type Severity Reaction Status Date / Time No Known Allergies Allergy Verified 06/01/23 20:24 Visit Medications Acetaminophen (Acetaminophen 325 Mg Tablet) 650 mg PO Q6H PRN PRN Reason: Fever >101.5 Stop: 03/28/24 16:17 Acetaminophen (Acetaminophen 325 Mg Tablet) 650 mg PO Q6H PRN PRN Reason: PAIN SCALE 1-3 (mild Stop: 03/28/24 16:17 Albuterol/Ipratropium (Albuterol/Ipratropium (Duoneb) Rt Leeanne 3 Ml Nebu) 3 ml INH Q4HRRT DEWAYNE Stop: 03/28/24 18:59 Last Admin: 02/27/24 18:47 Dose: Not Given Docusate Sodium (Docusate Sod 100 Mg Capsule) 100 mg PO QDAY [facility]; Protocol Stop: 03/28/24 16:29 Last Admin: 02/27/24 17:29 Dose: 100 mg Sodium Chloride (Ns) 2,000 mls @ 150 mls/hr IV .[id number] ONE Stop: 02/28/24 00:38 Last Admin: 02/27/24 11:33 Dose: 150 mls/hr Ceftriaxone Sodium/Dextrose (Rocephin/D5w 1gm Iv Premix) 50 mls @ 100 mls/hr IV Q12HR [facility] Stop: 03/05/24 16:24 Last Infusion: 02/27/24 17:58 Dose: Infused Azithromycin 500 mg/ Sodium (Chloride) 250 mls @ 250 mls/hr IV QDAY [facility] Stop: 03/06/24 08:59 Lactulose (Lactulose Syrup 20 Gm/30 Ml Udc) 20 gm PO BID [facility]WAYNE; Protocol Stop: 03/28/24 20:59 Morphine Sulfate (Morphine Sulf Inj 10 Mg/Ml Vial) 1 mg IVP Q4H PRN PRN Reason: PAIN SCALE 7-10 (Severe Stop: 03/03/24 16:17 Ondansetron HCl (Ondansetron Inj 2 Mg/Ml Inj 2 Ml) 4 mg IV Q6HR PRN; Protocol PRN Reason: NAUSEA OR VOMITING Stop: 03/28/24 16:17 Pantoprazole Sodium (Pantoprazole 40 Mg Tablet) 40 mg PO QDAY [facility] Stop: 03/29/24 08:59 Sodium Chloride (Sodium Chloride Rt Leeanne 0.9% 3 Ml Nebu) 3 ml INH PRN PRN PRN Reason: SOLN Stop: 03/28/24 16:59 Last Admin: 02/27/24 17:06 Dose: 3 ml Discontinued Medications Acetaminophen (Acetaminophen 500 Mg Tablet) 1,000 mg PO X1 ONE Stop: 02/27/24 12:46 Last Admin: 02/27/24 12:52 Dose: 1,000 mg Albuterol (Albuterol Rt 2.5 Mg/0.5 Ml Nebu) 10 mg INH X1 ONE Stop: 02/27/24 11:20 Last Admin: 02/27/24 11:40 Dose: 10 mg Albuterol (Albuterol Rt 2.5 Mg/0.5 Ml Nebu) 10 mg INH X1 ONE Stop: 02/27/24 17:01 Last Admin: 02/27/24 17:06 Dose: 10 mg Azithromycin (Azithromycin 250 Mg Tablet) 500 mg PO QDAY [facility] Stop: 03/05/24 16:44 Last Admin: 02/27/24 17:29 Dose: 500 mg Vancomycin HCl 1,000 mg/ (Sodium Chloride) 250 mls @ 250 mls/hr IV X1 ONE Stop: 02/27/24 13:11 Last Infusion: 02/27/24 16:07 Dose: Infused Piperacillin/Tazobactam/Dextrose (Zosyn) 3.375 gm in 50 mls @ 100 mls/hr IV X1 ONE Stop: 02/27/24 12:41 Last Infusion: 02/27/24 13:38 Dose: Infused Azithromycin 500 mg/ Sodium (Chloride) 250 mls @ 250 mls/hr IV QDAY [facility] Stop: 03/05/24 16:24 Last Admin: 02/27/24 17:32 Dose: Not Given Sodium Chloride (Ns) 1,000 mls @ 999 mls/hr IV .Q1H1M ONE Stop: 02/27/24 17:27 Last Admin: 02/27/24 17:32 Dose: Not Given Ipratropium [place] (Ipratropium Rt 0.5 Mg/ 2.5 Ml Nebu) 0.5 mg INH X1 ONE Stop: 02/27/24 11:20 Last Admin: 02/27/24 11:40 Dose: 0.5 mg Lactulose (Lactulose Syrup 20 Gm/30 Ml Udc) 10 gm PO QDAY [facility]; Protocol Stop: 03/28/24 16:29 Methylprednisolone Sodium Succinate (Methylprednisolone Sod Succ 62.5 Mg/Ml 2ml Vial) 125 mg IVP X1 ONE Stop: 02/27/24 11:20 Last Admin: 02/27/24 11:24 Dose: 125 mg Sodium Chloride (Sodium Chloride Rt 10% 15 Ml Nebu) 5 ml INH X1 ONE Stop: 02/27/24 16:25 Assessment & Plan Plan This is a 39-year-old male PMHx of questionable asthma, GLADYS, pulmonary hypertension, obesity presenting to ED with SOB. Patient admitted for acute hypoxemic respiratory failure with possible ARDS 2/2 pneumonia versus asthma exacerbation. # Acute hypoxemic hypercapnic respiratory failure with Early ARDS pattern 2/2: # Asthma exacerbation # Sepsis 2/2 bilateral pneumonia Presented with SOB, tachypnea, desatting and 79% Questionable history of asthma, patient uses ALBUTEROL inhaler at home Coarse breath sounds bilaterally on exam On admission, febrile, leukocytosis, tachycardic Suspected source of infection, pneumonia seen on CXR CXR also showed bilateral opacity possibly early ARDS On 20 later by flow, FiO2 of 70 ABG showed respiratory acidosis: pH 7.27, CO2 74, O2 101, bicarb 33 Calculated PF ratio 150, suggesting moderate ARDS ICU team was consulted who recommended starting BiPAP Started on BiPAP Repeat ABG improved: pH 7.32, pCO2 64, pO2 61, bicarb 33 ? Continue AZITHROMYCIN 500 mg (02/26 to [present]) ? Continue CEFTRIAXONE 2 gram IV BID (02/26 to [present]) ? Continue DuoNebs q.4h. ? Continue BiPAP ? Follow-up repeat ABG ? Follow-up sputum culture and blood culture Appreciate ICU, Dr. Francis's recommendations # HTN Documented history of hypertension, patient currently not on medication BP 137/81 ? Continue to monitor ? Consider adding ANTIHYPERTENSIVE as needed # History of pulmonary hypertension #? Newly undiagnosed CHF Documented history of pulmonary hypertension CTA showed enlarged pulmonary artery CXR and CTA concerning for heart failure Elevated BNP 547 Patient denies chest pain, no lower extremity edema bilaterally ? Will repeat EKG ? Consider echo cardiogram Health maintenance Diet: Cardiac diet GI prophylaxis: PROTONIX DVT prophylaxis: HEPARIN subcu Antibiotics: CEFTRIAXONE and AZITHROMYCIN CODE STATUS: Full code Disposition: Admitted under hospitalist team, possible upgrade to ICU Patient case was discussed with attending, [] and senior residents Dr. Yonny Shine and Dr. Amos. Jus Armas DO PGYI Senior Resident Attestation: The patient is a 39-year-old male with significant past medical history of asthma, GLADYS, pulmonary hypertension and obesity presented to ED with shortness of breath and was found to have acute respiratory distress syndrome secondary to pneumonia in the setting of asthma. The patient was saturating 96% on high flow NC, and physical exam was significant for mild to moderate wheezing throughout the lung smy[place]. Labs are significant for white count 21.7. The patient was found to be septic. ABG was significant for acute hypoxic hypercapnic respiratory failure. The patient was placed on BiPAP, and repeat ABG revealed improvement in mental status along with hypercapnia. Patient was started on ceftriaxone and azithromycin, sputum and blood cultures were obtained. ICU team was made aware of the situation. We will continue the patient on DuoNeb every 4 hourly. I discussed with and supervised the internal medicine hospitalist physician involved in the care of this patient. I personally saw and examined the patient and discussed the assessment and plan with the entire medicine team, including my attending. I agree with the assessment and plan as documented above. Vic Amos MD PGY2 Internal Medicine Attending Provider Attestation/Addendum IJoleen DO, attest that I was physically present for the castillo portions of the service and evaluated the patient with the resident and I reviewed and discussed the case with the resident and agree with the resident's findings and plans of care as documented above Patient is a 39-year-old male with past medical history of asthma, GLADYS, pulmonary hypertension, who was brought to the ED due to worsening lethargy and shortness of breath. History was obtained from brother and . Patient has been noted to be having increased work of breathing since last night and has been noted to have confusion as well. Patient does not use oxygen at baseline and does not smoke any tobacco products. Patient has a CPAP at home for GLADYS which states that he was not using due to feeling as though he is choking. Upon initial evaluation in the ED, patient appeared to have worsening lethargy and poor response. An ABG was subsequently done showing 7.27/70/101. Chest x- ray appears to be consistent, moderate ARDS. Patient was subsequently placed on BiPAP. ICU was consulted due to CO2 retention. However upon my evaluation, patient was much more alert on BiPAP and answering questions appropriately. Patient reported improvement of the symptoms. Will admit patient to telemetry for further workup and medical management of acute mixed hypoxic/hypercapnic respiratory failure. Will have patient continue on BiPAP and repeat ABG in AM. Will start on steroids, breathing treatments and antibiotics.
--- NOTE | 2024-02-27 19:51 | ECHO_ITS ---
Transthoracic Echo Report Ht (in): 72 Wt (lb): 224 Exam Location: [facility] Status: Inpatient Phlebotomist: Rosio Cheng Indications: Procedure Performed: BP: 129 / 83 HR: 61 Rhythm: Sinus Technical Quality: Fair MEASUREMENTS (Male / Female) Normal Values 2D ECHO LV Diastolic Diameter PLAX 4.7 cm 4.2 - 5.9 / 3.9 - 5.3 cm LV Systolic Diameter PLAX 3.3 cm IVS Diastolic Thickness 1.1 cm 0.6 - 1.0 / 0.6 - 0.9 cm LVPW Diastolic Thickness 1.0 cm 0.6 - 1.0 / 0.6 - 0.9 cm LV Relative Wall Thickness 0.5 LVOT Diameter 2.0 cm LA Volume Index 18.9 cm?/m? 16 - 28 cm?/m? Ascending Aorta Diameter 2.7 cm M-MODE Aortic Root Diameter MM 2.5 cm LA Systolic Diameter MM 3.6 cm LA Ao Ratio MM 1.4 AV Cusp Separation MM 1.8 cm DOPPLER AV Peak Velocity 194.0 cm/s AV Peak Gradient 15.1 mmHg AV Mean Gradient 7.0 mmHg AV Velocity Time Integral 41.4 cm LVOT Peak Velocity 137.0 cm/s LVOT Peak Gradient 7.5 mmHg LVOT Velocity Time Integral 30.9 cm LVOT Cardiac Index 2578.8 cm?/min?m? AV Area Cont Eq vti 2.3 cm? AV Area Cont Eq pk 2.2 cm? MV Peak Velocity 123.0 cm/s MV Peak Gradient 6.1 mmHg MV Mean Velocity 68.9 cm/s MV Mean Gradient 2.0 mmHg MV Area PHT 3.8 cm? MR Peak Velocity 381.0 cm/s MR Peak Gradient 58.1 mmHg Mitral E Point Velocity 117.0 cm/s Mitral A Point Velocity 83.9 cm/s Mitral E to A Ratio 1.4 LV E' Lateral Velocity 13.8 cm/s Mitral E to LV E' Lateral Ratio 8.5 LV E' Septal Velocity 7.7 cm/s Mitral E to LV E' Septal Ratio 15.2 TR Peak Velocity 238.7 cm/s TR Peak Gradient 22.8 mmHg FINDINGS Left Ventricle Normal left ventricular size, wall thickness, systolic function with no obvious regional wall motion abnormalities. The ejection fraction is visually estimated at 55-60%. Right Ventricle The right ventricle is mildly dilated. Normal systolic function. The estimated right ventricular sy stolic pressure, 38 mmHg. RAP 10. Left Atrium The left atrium is normal by two-dimensional, color flow and Doppler imaging with no structural abnormalities, no thrombus formation present. Right Atrium The right atrium is normal by two-dimensional imaging, color flow and Doppler imaging with no struct ural abnormalities, no thrombus formation present. Atrial Septum The interatrial septum appears normal with no evidence of a shunt. Aorta The aorta is normal by two-dimensional, color flow and Doppler interrogation. Mitral Valve The mitral valve is normal by two-dimensional, color flow and Doppler interrogation. There is mild m itral valve regurgitation. Aortic Valve The aortic valve is trileaflet and normal by two-dimensional, color flow and Doppler interrogation. There is no significant aortic valve regurgitation. Tricuspid Valve The tricuspid valve is normal by two-dimensional, color flow and Doppler interrogation. There is tra ce tricuspid valve regurgitation. Pulmonic Valve There is no significant pulmonic valve regurgitation. Vessels The pulmonary artery appears normal. The inferior vena cava pulmonary and hepatic veins appear shyla l. Pericardium The pericardium is normal by two-dimensional imaging. There is no significant pericardial effusion. CONCLUSIONS Indication: SOB Normal LV size and function. Estimated EF 55-60% Mild RV dilatation. Normal RV function. Estimated RVSP 38mmHg. Mild MR. Trace TRHattie Degroot (Electronically Signed) Final Date: 28 February 2024 14:57
[2024-02-27 21:00] LABS: Base Excess 5 (-3-3); HCO3 34 mEq/L (20-26); Inspired Oxygen, FIO2 30 %; O2 Saturation 94 % (91-98); PCO2 72 mmHg (32.0-48.0); PO2 73 mmHg (83-108); pH, Arterial 7.29 (7.35-7.45)
[2024-02-27 21:02] LABS: Allen Test Performed/OK; Puncture Site Left Radial
--- NOTE | 2024-02-27 21:38 | ESCONSULT_ITS ---
HPI Data of Consult Requesting Physician: Joleen Alonso DO Admitting Provider: Joleen Alonso DO Attending Provider: Joleen Alonso DO Primary Care Provider: Yifan Diego MD Consult Narrative History of present illness: 39-year-old male with pastmedical history of questionable asthma, GLADYS, pulmonary hypertension, obesity who presented to ED with a chief complaint of SOB. ED course:On arrival BP 149/92, HR 93, RR 35, T101.8, satting 92% on 15 L 70% FiO2. Labs showed leukocytosis of 21.7, BNP 545, normal troponins, normal lactate. ABG showed respiratory acidosis pH 7.27, CO2 74, O2 101, bicarb 33. CXR and chest CT bilateral pneumonia, on exam, bilateral wheezing, initially patient was somnolent. Patient was given ALBUTEROL treatments and started on high flow in the ED, hw was subsequently admitted to floors for acute hypoxemic hypercapnic respiratory failure. ICU was consulted due to CO retention and worsening lethargy. By the time of consult patient was more awake, ABG showed improvement:pH 7.32, CO2 64, bicarb 33.No increased work of breathing with useof accessory muscles, on BiPap. Plan is to continue breathing treatments, follow up repeat ABGs and mental ad breathing status. cc:: cc: Joleen Alonso DO Review of Systems Review of Systems Systems Reviewed: All systems reviewed, normal except as documented Exam Vital Signs Temp Pulse Resp BP Pulse Ox O2 Del Method O2 Flow Rate 99.9 F 67 22 H 137/81 H 96 BiPAP 25 02/27/24 17:30 02/27/24 20:49 02/27/24 20:49 02/27/24 17:30 02/27/24 21:05 02/27/24 17:30 02/27/24 13:58 FiO2 30 02/27/24 21:05 Narrative Exam GENERAL: Somnolent but easily awakened. oriented HEENT: Normocephalic, atraumatic and nontender.? NECK: Supple without adenopathy. Trachea midline, no JVD.? CHEST: Heart rate and rythm normal, no murmurs, gallops auscultated. LUNGS: Bilateral wheezing, on Bipap ABDOMEN: Distended, Soft,symmetric , nontender, no guarding or rebound tenderness. Bowel sounds are normoactive in all 4 quadrants. EXTREMITIES: Nontender.? No pitting edema.? No cyanosis.? Patient is able to move all 4 extremities. SKIN: No rashes noted. NEURO:? Cranial nerves intact.? There is no focalization.? GCS is 15. Results Labs 02/28/24 05:28 02/28/24 05:28 Labs: Short CBC 02/27/24 Range/Units 11:20 WBC 21.7 H (3.8-10.6) Thou/mm3 Hgb 15.9 (13.5-16.0) g/dL Hct 49.3 (41.0-53.0) % Plt Count 245 (140-440) Thou/mm3 BMP 02/27/24 11:20 Sodium 138 Potassium 4.0 Chloride 100 Carbon Dioxide 33.8 H BUN 11 Creatinine 1.0 Glucose 140 H Calcium 8.9 Cardiac Enzymes 02/27/24 Range/Units 11:20 Troponin I 0.027 (0.0-0.045) ng/mL Liver Function 02/27/24 Range/Units 11:20 Total Bilirubin 0.8 (0.3-1.2) mg/dL AST 23 (0-34) U/L ALT 32 (10-49) U/L Alkaline Phosphatase 102 (46-116) U/L Albumin 4.4 (3.5-5.0) gm/dL Urine 02/27/24 Range/Units 12:15 Urine Color Yellow (Lt Yel-Yel) Urine Clarity Clear (Clear/Hazy) Urine pH 6.0 (5.0-7.0) Ur Specific [address] 1.038 H (1.001-1.035) Urine Protein 1+ A (Neg - Trace) Urine Glucose (UA) Negative (Negative) ABG Interpretation ABG results: 02/27/24 02/27/24 02/27/24 11:36 16:09 17:55 ABG pH 7.27 L 7.32 L ABG pCO2 74 H* 64 H D ABG pO2 101 61 L D ABG HCO3 33 H 33 H ABG O2 Saturation 98 91 ABG Base Excess 3 5 H VBG pH 7.43 VBG pCO2 45 VBG pO2 92 H VBG Base Excess 4 H 02/27/24 20:46 ABG pH 7.29 L ABG pCO2 72 H* ABG pO2 73 L ABG HCO3 34 H ABG O2 Saturation 94 ABG Base Excess 5 H VBG pH VBG pCO2 VBG pO2 VBG Base Excess Impressions Impression: 39-year-old male with pastmedical history of questionable asthma, GLADYS, pulmonary hypertension, obesity who presented to ED with a chief complaint of SOB. ED course:On arrival BP 149/92, HR 93, RR 35, T101.8, satting 92% on 15 L 70% FiO2. Labs showed leukocytosis of 21.7, BNP 545, normal troponins, normal lactate. ABG showed respiratory acidosis pH 7.27, CO2 74, O2 101, bicarb 33. CXR and chest CT bilateral pneumonia, on exam, bilateral wheezing, initially patient was somnolent. Patient was given ALBUTEROL treatments and started on high flow in the ED, hw was subsequently admitted to floors for acute hypoxemic hypercapnic respiratory failure. ICU was consulted due to CO retention and worsening lethargy. By the time of consult patient was more awake, ABG showed improvement:pH 7.32, CO2 64, bicarb 33.No increased work of breathing with useof accessory muscles, on BiPap. 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 -CXR and chest CT bilateral pneumonia, -Physical exam, bilateral wheezing, initially patient was somnolent. -Repeat ABG after bipap ABG showed improvement:pH 7.32, CO2 64, bicarb 33. -Currently No increased work of breathing with use of accessory muscles, on BiPap. -Plan is to continue breathing treatments, follow up repeat ABGs and mental ad breathing status, bipap overnight and morning transition to high flow NC Disposition: ICU consulted due to acute hypoxic hypercapnic respiratory failure due to OHS and pneumonia Patient's care discussed with attending physician, Dr Penny Schmidt MD PGY3 Quality Measures Quality Measures none Medications Home Medications and Allergies Allergies Allergy/AdvReac Type Severity Reaction Status Date / Time No Known Allergies Allergy Verified 06/01/23 20:24 Visit Medications Acetaminophen (Acetaminophen 325 Mg Tablet) 650 mg PO Q6H PRN PRN Reason: Fever >101.5 Stop: 03/28/24 16:17 Acetaminophen (Acetaminophen 325 Mg Tablet) 650 mg PO Q6H PRN PRN Reason: PAIN SCALE 1-3 (mild Stop: 03/28/24 16:17 Albuterol/Ipratropium (Albuterol/Ipratropium (Duoneb) Rt Leeanne 3 Ml Nebu) 3 ml INH Q4HRRT DEWAYNE Stop: 03/28/24 18:59 Last Admin: 02/27/24 18:47 Dose: Not Given Docusate Sodium (Docusate Sod 100 Mg Capsule) 100 mg PO QDAY [facility]; Protocol Stop: 03/28/24 16:29 Last Admin: 02/27/24 17:29 Dose: 100 mg Heparin Sodium (Porcine) (Heparin Sod Inj 5000 Unit/Ml Vial) 5,000 unit SC Q8HR DEWAYNE Stop: 03/12/24 21:59 Azithromycin 500 mg/ Sodium (Chloride) 250 mls @ 250 mls/hr IV QDAY [facility] Stop: 03/06/24 08:59 Ceftriaxone Sodium 2 gm/ (Sodium Chloride) 50 mls @ 100 mls/hr IV QDAY [facility] Stop: 03/06/24 08:59 Sodium Chloride (Ns) 2,000 mls @ 75 mls/hr IV .Q24H ONE Stop: 02/28/24 11:18 Methylprednisolone Sodium Succinate (Methylprednisolone Sod Succ 40 Mg Vial) 40 mg IVP Q8H [facility] Stop: 03/05/24 19:44 Last Admin: 02/27/24 19:57 Dose: 40 mg Morphine Sulfate (Morphine Sulf Inj 10 Mg/Ml Vial) 1 mg IVP Q4H PRN PRN Reason: PAIN SCALE 7-10 (Severe Stop: 03/03/24 16:17 Ondansetron HCl (Ondansetron Inj 2 Mg/Ml Inj 2 Ml) 4 mg IV Q6HR PRN; Protocol PRN Reason: NAUSEA OR VOMITING Stop: 03/28/24 16:17 Pantoprazole Sodium (Pantoprazole 40 Mg Tablet) 40 mg PO QDAY [facility] Stop: 03/29/24 08:59 Sodium Chloride (Sodium Chloride Rt Leeanne 0.9% 3 Ml Nebu) 3 ml INH PRN PRN PRN Reason: SOLN Stop: 03/28/24 16:59 Last Admin: 02/27/24 17:06 Dose: 3 ml Discontinued Medications Acetaminophen (Acetaminophen 500 Mg Tablet) 1,000 mg PO X1 ONE Stop: 02/27/24 12:46 Last Admin: 02/27/24 12:52 Dose: 1,000 mg Albuterol (Albuterol Rt 2.5 Mg/0.5 Ml Nebu) 10 mg INH X1 ONE Stop: 02/27/24 11:20 Last Admin: 02/27/24 11:40 Dose: 10 mg Albuterol (Albuterol Rt 2.5 Mg/0.5 Ml Nebu) 10 mg INH X1 ONE Stop: 02/27/24 17:01 Last Admin: 02/27/24 17:06 Dose: 10 mg Azithromycin (Azithromycin 250 Mg Tablet) 500 mg PO QDAY [facility] Stop: 03/05/24 16:44 Last Admin: 02/27/24 17:29 Dose: 500 mg Sodium Chloride (Ns) 2,000 mls @ 150 mls/hr IV .[id number] ONE Stop: 02/28/24 00:38 Last Admin: 02/27/24 11:33 Dose: 150 mls/hr Vancomycin HCl 1,000 mg/ (Sodium Chloride) 250 mls @ 250 mls/hr IV X1 ONE Stop: 02/27/24 13:11 Last Infusion: 02/27/24 16:07 Dose: Infused Piperacillin/Tazobactam/Dextrose (Zosyn) 3.375 gm in 50 mls @ 100 mls/hr IV X1 ONE Stop: 02/27/24 12:41 Last Infusion: 02/27/24 13:38 Dose: Infused Ceftriaxone Sodium/Dextrose (Rocephin/D5w 1gm Iv Premix) 50 mls @ 100 mls/hr IV Q12HR [facility]WAYNE Stop: 03/05/24 16:24 Last Infusion: 02/27/24 17:58 Dose: Infused Azithromycin 500 mg/ Sodium (Chloride) 250 mls @ 250 mls/hr IV QDAY [facility] Stop: 03/05/24 16:24 Last Admin: 02/27/24 17:32 Dose: Not Given Sodium Chloride (Ns) 1,000 mls @ 999 mls/hr IV .Q1H1M ONE Stop: 02/27/24 17:27 Last Admin: 02/27/24 17:32 Dose: Not Given Ipratropium [place] (Ipratropium Rt 0.5 Mg/ 2.5 Ml Nebu) 0.5 mg INH X1 ONE Stop: 02/27/24 11:20 Last Admin: 02/27/24 11:40 Dose: 0.5 mg Lactulose (Lactulose Syrup 20 Gm/30 Ml Udc) 10 gm PO QDAY [facility]; Protocol Stop: 03/28/24 16:29 Lactulose (Lactulose Syrup 20 Gm/30 Ml Udc) 20 gm PO BID DEWAYNE; Protocol Stop: 03/28/24 20:59 Methylprednisolone Sodium Succinate (Methylprednisolone Sod Succ 62.5 Mg/Ml 2ml Vial) 125 mg IVP X1 ONE Stop: 02/27/24 11:20 Last Admin: 02/27/24 11:24 Dose: 125 mg Sodium Chloride (Sodium Chloride Rt 10% 15 Ml Nebu) 5 ml INH X1 ONE Stop: 02/27/24 16:25 Assessment & Plan Attending Provider Attestation/Addendum Patient seen and examined with above resident, Snow Schmidt MD. I agree with the findings, assessment, and plan of care as documented except for any differences below. Patient initially admitted with asthma/COPD exacerbation though cannot exclude presence of pneumonia based on chest film. Agree with plan for empiric antibiotics though maintain aggressive airway clearance/bronchodilation and steroids. Patient responded extremely well to BiPAP with improved mentation and slow but steady improvement in pCO2. Plan for break starting tomorrow with use of high flow nasal cannula and should be maintained on nocturnal BiPAP as he does have a significant component of obstructive sleep apnea as we witnessed at the bedside in the emergency department. Patient is stable for admission to the telemetry and we will be available for any needs should they arise. Plan of care discussed with medicine team at length. At this point patient does not need airway management as his mentation has become adequate to continue noninvasive support. Total critical care time: I personally spent 35 minutes for review of physiologic parameters, directing plan of care throughout the day, coordination of care with other specialties, and counseling patient's at bedside. This is exclusive of time spent teaching housestaff or performing any separate billable procedures. Patient did require critical care services given the risk of increased morbidity and mortality associated with underlying acute hypercapnic respiratory failure secondary to asthma exacerbation.
[2024-02-27] MEDS: ALBUTEROL/IPRATROPIUM (Duoneb) RT SOL 3 ML NEBU INH (22:36)
[2024-02-27] MEDS: HEPARIN SOD INJ 5000 UNIT/ML VIAL SC (23:58)
[2024-02-28] VITALS (18 sets, daily range): BP systolic 125–144; BP diastolic 67–83; PULSE 54–88; RESP 16–30; TEMP 35.9–37.2; O2SAT 92–100; BMI 31.3
[2024-02-28 00:42] LABS: Base Excess 6 (-3-3); HCO3 35 mEq/L (20-26); Inspired Oxygen, FIO2 30 %; O2 Saturation 97 % (91-98); PCO2 65 mmHg (32.0-48.0); PO2 84 mmHg (83-108); pH, Arterial 7.33 (7.35-7.45)
[2024-02-28 00:43] LABS: Allen Test Performed/OK; Puncture Site Left Radial
[2024-02-28] MEDS: SODIUM CHLORIDE 0.9% 1000 ML 1,000 ML 75 ML IV (02:00)
[2024-02-28] MEDS: ALBUTEROL/IPRATROPIUM (Duoneb) RT SOL 3 ML NEBU INH ×6 (02:13→22:17)
[2024-02-28] MEDS: HEPARIN SOD INJ 5000 UNIT/ML VIAL SC ×3 (05:13→21:47)
[2024-02-28 06:05] LABS: Basophils % (Auto) 0 % (0-2.5); Eosinophils % (Auto) 0 % (0-10); Hematocrit 43.2 % (41.0-53.0); Immature Granulocytes % (Auto) 1 % (0-0); Immature Granulocytes Auto 0.07 Thou/mm3 (0.00-0.00); Lymphocytes # (Auto) 0.8 Thou/mm3 (1.0-4.8); Lymphocytes % (Auto) 6 % (10-50); Mean Corpuscular HGB Conc 32.4 g/dl (31.0-37.0); Mean Corpuscular Hemoglobin 30.8 pg (25.0-35.0); Mean Corpuscular Volume 95 fL (80-100); Monocytes # (Auto) 0.3 Thou/mm3 (0.0-0.8); Monocytes % (Auto) 2 % (0-12); Neutrophils # (Auto) 12.8 Thou/mm3 (1.8-7.7); Neutrophils % (Auto) 92 % (37-80); Nucleated Red Blood Cell % 0 /100 WBC (0); Platelet Count 167 Thou/mm3 (140-440); RDW Standard Deviation 46.4 fL (35.1-43.9); Red Blood Count 4.55 Miln/mm3 (4.50-5.90); White Blood Count 13.9 Thou/mm3 (3.8-10.6)
[2024-02-28 06:37] LABS: Alanine Aminotransferase 30 U/L (10-49); Albumin, Serum 3.9 gm/dL (3.5-5.0); Albumin/Globulin Ratio 1.4 (1.2-2.2); Alkaline Phosphatase 83 U/L (46-116); Anion Gap 4 (7-16); Aspartate Amino Transferase 24 U/L (0-34); BUN/Creatinine Ratio 11 Ratio (12-20); Bilirubin,Total 0.4 mg/dL (0.3-1.2); Blood Urea Nitrogen 9 mg/dL (9-23); Calcium 8.6 mg/dL (8.3-10.6); Calcium (Corrected) 8.7 mg/dL (8.5-10.1); Carbon Dioxide 31.6 mMol/L (20.0-31.0); Chloride 105 mMol/L (98-107); Creatinine (Component) 0.8 mg/dL (0.6-1.3); Estimated Creatinine Clearance 158.2 mL/min (>60); Globulin 2.7 gm/dL (2.3-3.5); Glucose 149 mg/dL (74-106); Magnesium 1.8 mg/dL (1.6-2.6); Osmolality,Calculated 282 (275-295); Phosphorous 2.2 mg/dL (2.4-5.1); Potassium 4.1 mMol/L (3.4-5.1); Sodium 141 mMol/L (136-145); Total Protein 6.6 gm/dL (5.7-8.2); eGFR > 60 See Note
--- NOTE | 2024-02-28 07:33 | PD.RESPRO ---
Documentation for date of: 02/28/24 Subjective Subjective Interval history: No acute overnight events. Maintained on BiPAP overnight, reports feeling better this morning, no bowel movement this morning. Denies fever, chills, headaches, chest pain, sob, cough, GI or urinary symptoms. Exam Vital Signs Temp Pulse Resp BP Pulse Ox O2 Del Method O2 Flow Rate 98.2 F 61 21 H 129/83 98 BiPAP 25 02/28/24 04:00 02/28/24 06:42 02/28/24 06:42 02/28/24 04:00 02/28/24 06:42 02/28/24 04:00 02/28/24 04:00 FiO2 30 02/28/24 06:42 Narrative Exam GENERAL: lethargic, drowsy, otherwise normal appearing adult male, NAD HEENT: NCAT.?MILLA. Oral mucosa is moist. Patent Nares NECK: Supple, nontender, no thyromegaly, no meningismus, no JVD, no step offs CHEST: Symmetrical, atraumatic, and with equal expansion, Nontender on palpation no deformity and no crepitus. CARDIOVASCULAR: RRR, no m/g/r LUNGS: Tachypnea, improved bilateral bronchial sounds, diffuse wheezing. Symmetrical chest rise. No intercostal subcostal retraction. ABDOMEN: Soft, flat, nontender. No guarding/rebound tenderness/masses. +BS EXTREMITIES: Nontender.? No edema/cyanosis.?Moves all 4 extremities well, with full ROM and good CSM. SKIN: Warm and dry, no jaundice/rashes. MSK: No lumbar or midline, no CVA, no paraspinal muscle spasm or tenderness. NEURO: ESPARZA x4, CN II-XII grossly intact.?No focal neurologic deficits. PSYCHIATRIC: Normal mood and affect, cooperative, no SI or HI or hallucinations. Objective Labs 02/28/24 05:28 02/28/24 05:28 Labs: Laboratory Results - last 24 hr 02/27/24 02/27/24 02/27/24 11:20 11:36 12:00 WBC 21.7 H RBC 5.12 Hgb 15.9 Hct 49.3 MCV 96 MCH 31.1 MCHC 32.3 RDW Std Deviation 47.5 H Plt Count 245 Neut % (Auto) 81 H Lymph % (Auto) 9 L [place] % (Auto) 8 Eos % (Auto) 0 Baso % (Auto) 0 Neut # (Auto) 17.6 H Lymph # (Auto) 2.0 [place] # (Auto) 1.8 H Eos # (Auto) 0.1 Baso # (Auto) 0.1 Immature Gran # (Auto) 0.14 H Absolute Nucleated RBC 0.00 Immature Gran % 1 H Nucleated RBC % 0 PT 11.9 INR 1.1 Puncture Site ABG pH ABG pCO2 ABG pO2 ABG HCO3 ABG O2 Saturation ABG Base Excess VBG pH 7.43 VBG pCO2 45 VBG pO2 92 H VBG O2 Sat (Keshia) 97 VBG Base Excess 4 H FiO2 Sodium 138 Potassium 4.0 Chloride 100 Carbon Dioxide 33.8 H Anion Gap 4 L BUN 11 Creatinine 1.0 Estim Creat Clear Calc Not Performed. eGFR > 60 BUN/Creatinine Ratio 11 L Glucose [address] Glu mg/dL 126 Hemoglobin A1c 6.0 Calculated Osmolality 277 Lactic Acid 1.8 Calcium 8.9 Corrected Calcium 8.9 Phosphorus Magnesium Total Bilirubin 0.8 AST 23 ALT 32 Alkaline Phosphatase 102 Troponin I 0.027 B-Natriuretic Peptide 547 H* Total Protein 7.5 Albumin 4.4 Globulin 3.1 Albumin/Globulin Ratio 1.4 Procalcitonin 0.15 Ur Collection Type Urine Color Urine Clarity Urine pH Ur Specific [place] Urine Protein Urine Glucose (UA) Urine Ketones Urine Blood Urine Nitrite Urine Bilirubin Urine Urobilinogen (Auto) Ur Leukocyte Esterase Urine RBC Urine WBC Ur Squamous Epith Cells Urine Bacteria Ur Culture Indicated? Urine Opiates Screen Urine Fentanyl Screen Ur Barbiturates Screen U Amphetamin/Meth Scrn U Benzodiazepines Scrn U Cocaine Metab Screen U Marijuana (THC) Screen Ethyl Alcohol < 3.0 RSV Rapid Negative Blood Type O Positive Antibody Screen NEGATIVE Blood Bank Wristband ID Yes 02/27/24 02/27/24 02/27/24 12:15 16:09 17:55 WBC RBC Hgb Hct MCV MCH MCHC RDW Std Deviation Plt Count Neut % (Auto) Lymph % (Auto) [place] % (Auto) Eos % (Auto) Baso % (Auto) Neut # (Auto) Lymph # (Auto) [place] # (Auto) Eos # (Auto) Baso # (Auto) Immature Gran # (Auto) Absolute Nucleated RBC Immature Gran % Nucleated RBC % PT INR Puncture Site Left Radial Left Radial ABG pH 7.27 L 7.32 L ABG pCO2 74 H* 64 H D ABG pO2 101 61 L D ABG HCO3 33 H 33 H ABG O2 Saturation 98 91 ABG Base Excess 3 5 H VBG pH VBG pCO2 VBG pO2 VBG O2 Sat (Keshia) VBG Base Excess FiO2 65 30 Sodium Potassium Chloride Carbon Dioxide Anion Gap BUN Creatinine Estim Creat Clear Calc eGFR BUN/Creatinine Ratio Glucose Estimated Ave Glu mg/dL Hemoglobin A1c Calculated Osmolality Lactic Acid Calcium Corrected Calcium Phosphorus Magnesium Total Bilirubin AST ALT Alkaline Phosphatase Troponin I B-Natriuretic Peptide Total Protein Albumin Globulin Albumin/Globulin Ratio Procalcitonin Ur Collection Type Clean Catch Urine Color Yellow Urine Clarity Clear Urine pH 6.0 Ur Specific [place] 1.038 H Urine Protein 1+ A Urine Glucose (UA) Negative Urine Ketones Negative Urine Blood Negative Urine Nitrite Negative Urine Bilirubin Negative Urine Urobilinogen (Auto) Negative Ur Leukocyte Esterase Negative Urine RBC 4 H Urine WBC 1 Ur Squamous Epith Cells 1 Urine Bacteria None Ur Culture Indicated? Not Indicated Urine Opiates Screen Negative Urine Fentanyl Screen Negative Ur Barbiturates Screen Negative U Amphetamin/Meth Scrn Negative U Benzodiazepines Scrn Negative U Cocaine Metab Screen Negative U Marijuana (THC) Screen Negative Ethyl Alcohol RSV Rapid Blood Type Antibody Screen Blood Bank Wristband ID 02/27/24 02/28/24 02/28/24 20:46 00:35 05:28 WBC 13.9 H D RBC 4.55 Hgb 14.0 Hct 43.2 MCV 95 MCH 30.8 MCHC 32.4 RDW Std Deviation 46.4 H Plt Count 167 D Neut % (Auto) 92 H Lymph % (Auto) 6 L [place] % (Auto) 2 Eos % (Auto) 0 Baso % (Auto) 0 Neut # (Auto) 12.8 H Lymph # (Auto) 0.8 L [place] # (Auto) 0.3 Eos # (Auto) 0.0 Baso # (Auto) 0.0 Immature Gran # (Auto) 0.07 H Absolute Nucleated RBC 0.00 Immature Gran % 1 H Nucleated RBC % 0 PT INR Puncture Site Left Radial Left Radial ABG pH 7.29 L 7.33 L ABG pCO2 72 H* 65 H ABG pO2 73 L 84 ABG HCO3 34 H 35 H ABG O2 Saturation 94 97 ABG Base Excess 5 H 6 H VBG pH VBG pCO2 VBG pO2 VBG O2 Sat (Keshia) VBG Base Excess FiO2 30 30 Sodium 141 Potassium 4.1 Chloride 105 Carbon Dioxide 31.6 H Anion Gap 4 L BUN 9 Creatinine 0.8 Estim Creat Clear Calc 158.2 eGFR > 60 BUN/Creatinine Ratio 11 L Glucose [address] Glu mg/dL Hemoglobin A1c Calculated Osmolality 282 Lactic Acid Calcium 8.6 Corrected Calcium 8.7 Phosphorus 2.2 L Magnesium 1.8 Total Bilirubin 0.4 AST 24 ALT 30 Alkaline Phosphatase 83 Troponin I B-Natriuretic Peptide Total Protein 6.6 Albumin 3.9 D Globulin 2.7 Albumin/Globulin Ratio 1.4 Procalcitonin Ur Collection Type Urine Color Urine Clarity Urine pH Ur Specific [place] Urine Protein Urine Glucose (UA) Urine Ketones Urine Blood Urine Nitrite Urine Bilirubin Urine Urobilinogen (Auto) Ur Leukocyte Esterase Urine RBC Urine WBC Ur Squamous Epith Cells Urine Bacteria Ur Culture Indicated? Urine Opiates Screen Urine Fentanyl Screen Ur Barbiturates Screen U Amphetamin/Meth Scrn U Benzodiazepines Scrn U Cocaine Metab Screen U Marijuana (THC) Screen Ethyl Alcohol RSV Rapid Blood Type Antibody Screen Blood Bank Wristband ID ABG Interpretation ABG results: 02/27/24 02/27/24 02/27/24 11:36 16:09 17:55 ABG pH 7.27 L 7.32 L ABG pCO2 74 H* 64 H D ABG pO2 101 61 L D ABG HCO3 33 H 33 H ABG O2 Saturation 98 91 ABG Base Excess 3 5 H VBG pH 7.43 VBG pCO2 45 VBG pO2 92 H VBG Base Excess 4 H 02/27/24 02/28/24 20:46 00:35 ABG pH 7.29 L 7.33 L ABG pCO2 72 H* 65 H ABG pO2 73 L 84 ABG HCO3 34 H 35 H ABG O2 Saturation 94 97 ABG Base Excess 5 H 6 H VBG pH VBG pCO2 VBG pO2 VBG Base Excess Quality Measures Quality Measures none Assessment & Plan Assessment Current Active Medications: Generic Name Dose Route Start Last Admin Trade Name Freq PRN Reason Stop Dose Admin Acetaminophen 650 mg 02/27/24 16:18 Acetaminophen 325 Mg Tablet PO 03/28/24 16:17 Q6H PRN Fever >101.5 Acetaminophen 650 mg 02/27/24 16:18 Acetaminophen 325 Mg Tablet PO 03/28/24 16:17 Q6H PRN PAIN SCALE 1-3 (mild Albuterol/Ipratropium 3 ml 02/27/24 19:00 02/28/24 06:41 Albuterol/Ipratropium (Duoneb) Rt Leeanne 3 Ml Nebu INH 03/28/24 18:59 3 ml Q4HRRT DEWAYNE Administration Docusate Sodium 100 mg 02/27/24 16:30 02/27/24 17:29 Docusate Sod 100 Mg Capsule PO 03/28/24 16:29 100 mg QDAY DEWAYNE Administration Protocol Heparin Sodium (Porcine) 5,000 unit 02/27/24 22:00 02/28/24 05:13 Heparin Sod Inj 5000 Unit/Ml Vial SC 03/12/24 21:59 5,000 unit Q8HR DEWAYNE Administration Azithromycin 500 mg/ Sodium 250 mls @ 250 mls/hr 02/28/24 09:00 Chloride IV 03/06/24 08:59 QDAY DEWAYNE Ceftriaxone Sodium 2 gm/ 50 mls @ 100 mls/hr 02/28/24 09:00 Sodium Chloride IV 03/06/24 08:59 QDAY DEWAYNE Sodium Chloride 1,000 mls @ 75 mls/hr 02/28/24 02:15 02/28/24 02:00 Ns IV 02/29/24 04:54 75 mls/hr .[id number] DEWAYNE Administration Methylprednisolone Sodium Succinate 40 mg 02/27/24 19:45 02/28/24 03:11 Methylprednisolone Sod Succ 40 Mg Vial IVP 03/05/24 19:44 40 mg Q8H DEWAYNE Administration Morphine Sulfate 1 mg 02/27/24 16:18 Morphine Sulf Inj 10 Mg/Ml Vial IVP 03/03/24 16:17 Q4H PRN PAIN SCALE 7-10 (Severe Ondansetron HCl 4 mg 02/27/24 16:18 Ondansetron Inj 2 Mg/Ml Inj 2 Ml IV 03/28/24 16:17 Q6HR PRN NAUSEA OR VOMITING Protocol Pantoprazole Sodium 40 mg 02/28/24 09:00 Pantoprazole 40 Mg Tablet PO 03/29/24 08:59 QDAY [facility] Sodium Chloride 3 ml 02/27/24 17:00 02/27/24 17:06 Sodium Chloride Rt Leeanne 0.9% 3 Ml Nebu INH 03/28/24 16:59 3 ml PRN PRN Administration SOLN Plan This is a 39-year-old male PMHx of questionable asthma, GLADYS, pulmonary hypertension, obesity presenting to ED with SOB. Patient admitted for acute hypoxemic respiratory failure with possible ARDS 2/2 pneumonia versus asthma exacerbation. On BiPAP, ANTIBIOTICS and DuoNebs. ABGs overall improving. # Acute hypoxemic hypercapnic respiratory failure with mild ARDS pattern 2/2: # Asthma exacerbation # Sepsis 2/2 bilateral pneumonia Presented with SOB, tachypnea, desatting and 79% Questionable history of asthma, patient uses ALBUTEROL inhaler at home Coarse breath sounds bilaterally on exam On admission, febrile, leukocytosis, tachycardic Suspected source of infection, pneumonia seen on CXR CXR also showed bilateral opacity possibly early ARDS On 20 later by flow, FiO2 of 70 Initial ABG showed respiratory acidosis: pH 7.27, CO2 74, O2 101, bicarb 33 Patient maintained on BiPAP Repeat PF ratio 245 suggest mild ARDS ICU team was consulted who recommended starting BiPAP ABG taking 2 hours after BiPAP break: pH 7.42, pCO2 52, PaO2 59, bicarb 33 ? Continue AZITHROMYCIN 500 mg (02/26 to [present]) ? Continue CEFTRIAXONE 2 gram IV BID (02/26 to [present]) ? Continue DuoNebs q.4h. ? Continue BiPAP ? Follow-up repeat ABG ? Follow-up sputum culture and blood culture ? Wean off oxygen Appreciate ICU, Dr. Francis's recommendations # HTN Documented history of hypertension, patient currently not on medication BP 127/67 ? Continue to monitor ? Consider adding ANTIHYPERTENSIVE as needed # Prediabetes Undiagnosed, not currently on medications A1c 6.0 this visit. Bedsides GLUCOSE 148 ? INSULIN sliding scale # History of pulmonary hypertension #? Newly undiagnosed CHF Documented history of pulmonary hypertension CTA showed enlarged pulmonary artery CXR and CTA concerning for heart failure Elevated BNP 547 Patient denies chest pain, no lower extremity edema bilaterally ? Will repeat EKG ? Follow-up ECHO Health maintenance Diet: Cardiac GI prophylaxis: Not indicated DVT prophylaxis: HEPARIN, SCD Antibiotics: CEFTRIAXONE, AZITHROMYCIN CODE STATUS: Full Disposition: Weaning off oxygen Patient case was discussed with attending, Dr. Gavin DO, and senior residents Dr. Yonny Shine and Dr. Amos. Jus Armas DO PGYI Senior Resident Attestation: The patient is a 39-year-old male with significant past medical history of asthma, GLAYDS, pulmonary hypertension and obesity presented to ED with shortness of breath and was found to have acute respiratory distress syndrome secondary to pneumonia in the setting of asthma. The patient reported doing much better this morning. He denied any SOB, fever or chills, nausea or vomiting, chest pain or palpitation. The patient was saturating 96% on 2L NC, and physical exam was significant for mild wheezing throughout the lung smyth. Labs are significant for white count trending down to 13.9. ABG was significant for pH 7.42, ABG pO2 59, pCO2 52. The patient was kept again on BiPAP. We will continue on ceftriaxone and azithromycin, sputum and blood cultures are pending. We will continue the patient on DuoNeb every 4 hourly. I discussed with and supervised the internal medicine hospitalist physician involved in the care of this patient. I personally saw and examined the patient and discussed the assessment and plan with the entire medicine team, including my attending. I agree with the assessment and plan as documented above. Vic Amos MD PGY2 Internal Medicine Attending Provider Attestation/Addendum I, Joleen Alonso DO, attest that I was physically present for the castillo portions of the service and evaluated the patient with the resident and I reviewed and discussed the case with the resident and agree with the resident's findings and plans of care as documented above Patient seen and evaluated this AM. Patient remains on BiPap at this time due to hypoxia. Will continue to wean off bipap. He denies any chest pain, fevers or chills. He reports feeling better today. Will DC IV fluids at this time. Continue with duonebs and scheduled breathing treatments. Patient reports being compliant with his CPAP at home ever since he had his mask switched out.
[2024-02-28] MEDS: POT PHOS 15 mMol in NS 250 ML 15 MMOL/250 ML BAG 62.5 MMOL IV (07:58)
[2024-02-28 09:26] LABS: Base Excess 7 (-3-3); HCO3 33 mEq/L (20-26); Inspired O2, VO2 Liters 3 L/min; Inspired Oxygen, FIO2 21 %; O2 Saturation 93 % (91-98); PCO2 52 mmHg (32.0-48.0); pH, Arterial 7.42 (7.35-7.45)
[2024-02-28 09:29] LABS: Allen Test Performed/OK; PO2 59 mmHg (83-108); Puncture Site Left Radial
[2024-02-28] MEDS: PANTOPRAZOLE 40 MG TABLET PO (10:31)
[2024-02-28] MEDS: cefTRIAXone 2 GM in SODIUM CHLORIDE 0.9% (P) 50 ML IV (10:31)
[2024-02-28] MEDS: DOCUSATE SOD 100 MG CAPSULE PO (10:31)
[2024-02-28] MEDS: AZITHROMYCIN 250 MG TABLET 500 MG PO (12:19)
--- NOTE | 2024-02-28 12:24 | PC.SS ---
Patient is alert/oriented. Patient admitted for acute sob. Patient is independent with ADL's. Patient is currently on bipap/high flow. SS spoke to patient with historical interpreter. Patient states he's not on 02 at home. He believes he has a bipap at home. SS will research what he has. Patient states he plans on returning home. is alternate medical decision maker. Patient is being followed by Dr. Diego @ [facility]. Family to provide transportation home.
--- NOTE | 2024-02-28 15:29 | CHAP ---
09:30 AM Visited by spiritual care volunteer Provided prayer for Patient.
[2024-02-28 16:58] LABS: Base Excess 6 (-3-3); HCO3 33 mEq/L (20-26); Inspired Oxygen, FIO2 21 %; O2 Saturation 76 % (91-98); PCO2 58 mmHg (32.0-48.0); pH, Arterial 7.37 (7.35-7.45)
[2024-02-28 17:14] LABS: Allen Test Performed/OK; Puncture Site Right Radial
[2024-02-28 17:16] LABS: PO2 41 mmHg (83-108)
[2024-02-28] MEDS: INSULIN LISPRO (AdmeLOG) 1 UNIT/0.01 ML UNIT SC ×2 (18:05→20:40)
[2024-02-29] VITALS (13 sets, daily range): BP systolic 125–152; BP diastolic 59–82; PULSE 50–85; RESP 15–28; TEMP 36.2–36.6; O2SAT 92–100; BMI 31.3
[2024-02-29] MEDS: ALBUTEROL/IPRATROPIUM (Duoneb) RT SOL 3 ML NEBU INH ×6 (02:02→22:30)
[2024-02-29 04:52] LABS: Allen Test Performed/OK; Base Excess 7 (-3-3); HCO3 34 mEq/L (20-26); Inspired Oxygen, FIO2 30 %; O2 Saturation 98 % (91-98); PCO2 56 mmHg (32.0-48.0); PO2 95 mmHg (83-108); Puncture Site Left Radial; pH, Arterial 7.39 (7.35-7.45)
--- NOTE | 2024-02-29 04:55 | PC.NURSE ---
Dr. Henry notified of patient heart rate dropping to 44 (did not sustain) and that patient is resting with eyes closed, asymptomatic. No new orders and will continue to monitor.
[2024-02-29] MEDS: HEPARIN SOD INJ 5000 UNIT/ML VIAL SC ×3 (05:22→21:40)
[2024-02-29 05:58] LABS: Basophils % (Auto) 0 % (0-2.5); Eosinophils % (Auto) 0 % (0-10); Hematocrit 44.1 % (41.0-53.0); Hemoglobin 14.4 g/dL (13.5-16.0); Immature Granulocytes % (Auto) 1 % (0-0); Immature Granulocytes Auto 0.12 Thou/mm3 (0.00-0.00); Lymphocytes % (Auto) 7 % (10-50); Mean Corpuscular HGB Conc 32.7 g/dl (31.0-37.0); Mean Corpuscular Hemoglobin 31.1 pg (25.0-35.0); Mean Corpuscular Volume 95 fL (80-100); Monocytes # (Auto) 0.7 Thou/mm3 (0.0-0.8); Monocytes % (Auto) 5 % (0-12); Neutrophils % (Auto) 88 % (37-80); Nucleated Red Blood Cell % 0 /100 WBC (0); Platelet Count 229 Thou/mm3 (140-440); Red Blood Count 4.63 Miln/mm3 (4.50-5.90); White Blood Count 15.9 Thou/mm3 (3.8-10.6)
[2024-02-29 06:25] LABS: Alanine Aminotransferase 30 U/L (10-49); Albumin, Serum 3.9 gm/dL (3.5-5.0); Albumin/Globulin Ratio 1.4 (1.2-2.2); Alkaline Phosphatase 78 U/L (46-116); Anion Gap 5 (7-16); Aspartate Amino Transferase 11 U/L (0-34); BUN/Creatinine Ratio 19 Ratio (12-20); Bilirubin,Total 0.3 mg/dL (0.3-1.2); Blood Urea Nitrogen 15 mg/dL (9-23); Calcium 8.9 mg/dL (8.3-10.6); Carbon Dioxide 32.2 mMol/L (20.0-31.0); Chloride 102 mMol/L (98-107); Creatinine (Component) 0.8 mg/dL (0.6-1.3); Estimated Creatinine Clearance 158.2 mL/min (>60); Globulin 2.7 gm/dL (2.3-3.5); Glucose 159 mg/dL (74-106); Magnesium 2.1 mg/dL (1.6-2.6); Osmolality,Calculated 281 (275-295); Potassium 4.2 mMol/L (3.4-5.1); Sodium 139 mMol/L (136-145); Total Protein 6.6 gm/dL (5.7-8.2); eGFR > 60 See Note
[2024-02-29] MEDS: INSULIN LISPRO (AdmeLOG) 1 UNIT/0.01 ML UNIT SC ×4 (07:53→20:43)
[2024-02-29] MEDS: AZITHROMYCIN 250 MG TABLET 500 MG PO (08:25)
[2024-02-29] MEDS: cefTRIAXone 2 GM in SODIUM CHLORIDE 0.9% (P) 50 ML IV (08:25)
[2024-02-29] MEDS: DOCUSATE SOD 100 MG CAPSULE PO (08:25)
[2024-02-29] MEDS: PANTOPRAZOLE 40 MG TABLET PO (08:25)
--- NOTE | 2024-02-29 10:19 | PC.SS ---
rounding note: patient continues on bipap. Weaning down
--- NOTE | 2024-02-29 15:42 | ESPR_ITS ---
<Statement entered by Sharan Rosa DO - 02/29/24 20:53> Senior attestation: Patient was examined and case was reviewed with team including attending physician. Note reviewed, I agree with most of its contents and agree with the patient's care. 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 Will continue current steroid and antibiotic regimen. Sharan Rosa DO PGY-3 Documentation for date of: 02/29/24 Subjective Subjective Interval history: Patient was seen and examined at bedside. No acute events overnight. Patient states that his shortness of breath is improved and was able to sleep better last night. Was able to wean off BiPAP machine and currently on 3 L nasal cannula saturating adequately. No signs of respiratory distress but expiratory wheezing still auscultated bilaterally. Will continue BiPAP machine at night. Labs and vitals were reviewed.?No further complaints at this time. Consider discharge tomorrow if patient remains stable. Review of systems otherwise negative except what is mentioned above. Exam Vital Signs Temp Pulse Resp BP Pulse Ox O2 Del Method O2 Flow Rate 97.6 F 64 20 125/59 L 99 Room Air 3 02/29/24 12:00 02/29/24 15:32 02/29/24 15:32 02/29/24 12:00 02/29/24 15:32 02/29/24 12:00 02/29/24 15:32 FiO2 30 02/29/24 06:24 Narrative Exam General: Alert and oriented x3. No acute distress, cooperative HEENT: Atraumatic, normocephalic. No JVD noted. Mucosa moist. Cardiovascular: Normal S1 and S2. Regular rate and rhythm. No pitting edema Respiratory: tachypnic, expiratory wheezing bilaterally, no subcostal retractions Abdomen: Soft, nontender, not distended, normal bowel sounds, obese Skin: Warm to touch, dry, no rashes noted Musculoskeletal: No gross injuries. Able to move all 4 extremities. Neuro: Alert and oriented x3. No focal neuro deficits. Psych: Normal affect and mood Objective Labs 03/01/24 05:03 03/01/24 05:03 Labs: Laboratory Results - last 24 hr 02/28/24 02/29/24 02/29/24 16:46 04:43 05:08 WBC 15.9 H RBC 4.63 Hgb 14.4 Hct 44.1 MCV 95 MCH 31.1 MCHC 32.7 RDW Std Deviation 46.0 H Plt Count 229 D Neut % (Auto) 88 H Lymph % (Auto) 7 L [place] % (Auto) 5 Eos % (Auto) 0 Baso % (Auto) 0 Neut # (Auto) 14.0 H Lymph # (Auto) 1.0 [place] # (Auto) 0.7 Eos # (Auto) 0.0 Baso # (Auto) 0.0 Immature Gran # (Auto) 0.12 H Absolute Nucleated RBC 0.00 Immature Gran % 1 H Nucleated RBC % 0 Puncture Site Right Radial Left Radial ABG pH 7.37 7.39 ABG pCO2 58 H 56 H ABG pO2 41 L* 95 D ABG HCO3 33 H 34 H ABG O2 Saturation 76 L 98 ABG Base Excess 6 H 7 H FiO2 21 30 Sodium 139 Potassium 4.2 Chloride 102 Carbon Dioxide 32.2 H Anion Gap 5 L BUN 15 Creatinine 0.8 Estim Creat Clear Calc 158.2 eGFR > 60 BUN/Creatinine Ratio 19 Glucose 159 H Calculated Osmolality 281 Calcium 8.9 Corrected Calcium 9.0 Phosphorus 3.0 Magnesium 2.1 Total Bilirubin 0.3 AST 11 ALT 30 Alkaline Phosphatase 78 Total Protein 6.6 Albumin 3.9 Globulin 2.7 Albumin/Globulin Ratio 1.4 ABG Interpretation ABG results: 02/27/24 02/27/24 02/27/24 11:36 16:09 17:55 ABG pH 7.27 L 7.32 L ABG pCO2 74 H* 64 H D ABG pO2 101 61 L D ABG HCO3 33 H 33 H ABG O2 Saturation 98 91 ABG Base Excess 3 5 H VBG pH 7.43 VBG pCO2 45 VBG pO2 92 H VBG Base Excess 4 H 02/27/24 02/28/24 02/28/24 20:46 00:35 09:19 ABG pH 7.29 L 7.33 L 7.42 ABG pCO2 72 H* 65 H 52 H D ABG pO2 73 L 84 59 L* D ABG HCO3 34 H 35 H 33 H ABG O2 Saturation 94 97 93 ABG Base Excess 5 H 6 H 7 H VBG pH VBG pCO2 VBG pO2 VBG Base Excess 02/28/24 02/29/24 16:46 04:43 ABG pH 7.37 7.39 ABG pCO2 58 H 56 H ABG pO2 41 L* 95 D ABG HCO3 33 H 34 H ABG O2 Saturation 76 L 98 ABG Base Excess 6 H 7 H VBG pH VBG pCO2 VBG pO2 VBG Base Excess Quality Measures Quality Measures none Assessment & Plan Assessment Current Active Medications: Generic Name Dose Route Start Last Admin Trade Name Freq PRN Reason Stop Dose Admin Acetaminophen 650 mg 02/27/24 16:18 Acetaminophen 325 Mg Tablet PO 03/28/24 16:17 Q6H PRN Fever >101.5 Acetaminophen 650 mg 02/27/24 16:18 Acetaminophen 325 Mg Tablet PO 03/28/24 16:17 Q6H PRN PAIN SCALE 1-3 (mild Albuterol/Ipratropium 3 ml 02/27/24 19:00 02/29/24 15:32 Albuterol/Ipratropium (Duoneb) Rt Leeanne 3 Ml Nebu INH 03/28/24 18:59 3 ml Q4HRRT DEWAYNE Administration Azithromycin 500 mg 02/28/24 12:15 02/29/24 08:25 Azithromycin 250 Mg Tablet PO 03/06/24 12:14 500 mg QDAY DEWAYNE Administration Dextrose 25 ml 02/28/24 16:07 Dextrose 50%-Water Inj 50 Ml Syringe IV 03/29/24 16:06 Q15MIN PRN BG 50-70 responsive npo pt Dextrose 50 ml 02/28/24 16:07 Dextrose 50%-Water Inj 50 Ml Syringe IV 03/29/24 16:06 Q15MIN PRN BG <50 OR BG <70 & pt unresponsive Docusate Sodium 100 mg 02/27/24 16:30 02/29/24 08:25 Docusate Sod 100 Mg Capsule PO 03/28/24 16:29 100 mg QDAY DEWAYNE Administration Protocol Glucagon 1 mg 02/28/24 16:07 Glucagon Inj 1 Mg Vial IM Q15MIN PRN BG <70, and no IV access Heparin Sodium (Porcine) 5,000 unit 02/27/24 22:00 02/29/24 13:47 Heparin Sod Inj 5000 Unit/Ml Vial SC 03/12/24 21:59 5,000 unit Q8HR DEWAYNE Administration Ceftriaxone Sodium 2 gm/ 50 mls @ 100 mls/hr 02/28/24 09:00 02/29/24 08:25 Sodium Chloride IV 03/06/24 08:59 100 mls/hr QDAY DEWAYNE Administration Insulin Human Lispro 0 unit 02/28/24 17:00 02/29/24 12:28 Insulin Lispro (Admelog) 1 Unit/0.01 Ml Unit SC 03/29/24 16:59 1 unit ACHS DEWAYNE Administration Protocol Methylprednisolone Sodium Succinate 40 mg 02/27/24 19:45 02/29/24 12:24 Methylprednisolone Sod Succ 40 Mg Vial IVP 03/05/24 19:44 40 mg Q8H DEWAYNE Administration Morphine Sulfate 1 mg 02/27/24 16:18 Morphine Sulf Inj 10 Mg/Ml Vial IVP 03/03/24 16:17 Q4H PRN PAIN SCALE 7-10 (Severe Ondansetron HCl 4 mg 02/27/24 16:18 Ondansetron Inj 2 Mg/Ml Inj 2 Ml IV 03/28/24 16:17 Q6HR PRN NAUSEA OR VOMITING Protocol Pantoprazole Sodium 40 mg 02/28/24 09:00 02/29/24 08:25 Pantoprazole 40 Mg Tablet PO 03/29/24 08:59 40 mg QDAY DEWAYNE Administration Sodium Chloride 3 ml 02/27/24 17:00 02/27/24 17:06 Sodium Chloride Rt Leeanne 0.9% 3 Ml Nebu INH 03/28/24 16:59 3 ml PRN PRN Administration SOLN Plan This is a 39-year-old male PMHx of questionable asthma, GLADYS, pulmonary hypertension, obesity presenting to ED with SOB. Patient admitted for acute hypoxemic respiratory failure with possible ARDS 2/2 pneumonia versus asthma exacerbation. On BiPAP, antibiotics and DuoNebs. ABGs overall improving. # Acute hypoxemic hypercapnic respiratory failure 2/2: # Asthma exacerbation # Sepsis 2/2 bilateral pneumonia Presented with SOB, tachypnea, desatting and 79%. Questionable history of asthma, patient uses ALBUTEROL inhaler at home. Coarse breath sounds bilaterally on exam. On admission, febrile, leukocytosis, tachycardic Suspected source of infection, pneumonia seen on CXR CXR also showed bilateral opacity possibly early ARDS. Patient maintained on BiPAP but was able to wean off and currently on 3 L nasal cannula saturating adequately. Will continue BiPAP at night. ? Continue AZITHROMYCIN 500 mg (02/26 to [present]) ? Continue CEFTRIAXONE 2 gram IV BID (02/26 to [present]) ? Continue DuoNebs q.4h. ?Continue steroid course Methylprednisone 40 mg IV every 8 hours ? Continue BiPAP at night ? Follow-up repeat ABG ? Wean off oxygen # HTN Documented history of hypertension, patient currently not on medication his blood pressure continues to remain within normal limits. ? Continue to monitor ? Consider adding antihypertensive as needed # Prediabetes Undiagnosed, not currently on medications A1c 6.0 this visit. ? Insulin sliding scale #History of obstructive sleep apnea ? Patient states he uses CPAP at home. During course of stay patient was weaned off of BiPAP machine and using during night as needed. # History of pulmonary hypertension Documented history of pulmonary hypertension. Echo shows EF 55-60%. CTA showed enlarged pulmonary artery CXR and CTA concerning for heart failure Elevated BNP 547 on admission. Patient denies chest pain, no lower extremity edema bilaterally ? Will repeat EKG Health maintenance Diet: Cardiac GI prophylaxis: Not indicated DVT prophylaxis: HEPARIN, SCD Antibiotics: CEFTRIAXONE, AZITHROMYCIN CODE STATUS: Full Disposition: Weaning off oxygen The patient's management plan was discussed with my attending physician Dr. Lugo. Lavinia Morrison, PGY-1 Attending Provider Attestation/Addendum I have examined the patient, reviewed labs and imaging findings, discussed the case with the resident(s), and reviewed entered orders. I agree with the plan of care as outlined in this note, with these additional summaries/recommendations: Patient seen at bedside. No acute overnight events. This morning patient was switched from BiPAP overnight to nasal cannula. He reports improvement in shortness of breath but has not resolved. Significant bilateral wheezing still noted on physical exam. Patient denies ever having pulmonary function tests in the past. Patient has acute hypoxic and hypercapnic respiratory failure secondary to asthma/COPD exacerbation +/- obstructive sleep apnea. We will continue scheduled and as needed breathing treatments, IV Solu-Medrol, and azithromycin for 2 out of 3 cardinal signs. ABG this morning shows pCO2 of 56. Patient was also found to have bilateral pneumonia on chest x-ray and receiving IV antibiotics. Sputum culture pending. Echocardiogram showed ejection fraction of 55 to 60%. We will continue nocturnal BiPAP and arranging home BiPAP machine with case management. Patient will also continue nocturnal BiPAP while hospitalized. Leukocytosis worsening and most likely secondary to steroids. We will continue to wean oxygen as tolerated. Patient updated on the plan and in agreement. Repeat hematology, chemistry panel, and ABG in AM. Dr. Lugo
[2024-03-01] VITALS (8 sets, daily range): BP systolic 122–142; BP diastolic 69–91; PULSE 48–65; RESP 18–95; TEMP 36.6–37; O2SAT 93–99; BMI 26.9
[2024-03-01] MEDS: ALBUTEROL/IPRATROPIUM (Duoneb) RT SOL 3 ML NEBU INH ×4 (02:49→14:14)
[2024-03-01] MEDS: HEPARIN SOD INJ 5000 UNIT/ML VIAL SC (05:12)
[2024-03-01 06:03] LABS: Basophils % (Auto) 0 % (0-2.5); Eosinophils % (Auto) 0 % (0-10); Hematocrit 45.7 % (41.0-53.0); Immature Granulocytes % (Auto) 1 % (0-0); Immature Granulocytes Auto 0.14 Thou/mm3 (0.00-0.00); Lymphocytes # (Auto) 1.2 Thou/mm3 (1.0-4.8); Lymphocytes % (Auto) 8 % (10-50); Mean Corpuscular HGB Conc 32.8 g/dl (31.0-37.0); Mean Corpuscular Hemoglobin 30.8 pg (25.0-35.0); Mean Corpuscular Volume 94 fL (80-100); Monocytes # (Auto) 0.6 Thou/mm3 (0.0-0.8); Monocytes % (Auto) 4 % (0-12); Neutrophils # (Auto) 12.8 Thou/mm3 (1.8-7.7); Neutrophils % (Auto) 87 % (37-80); Nucleated Red Blood Cell % 0 /100 WBC (0); Platelet Count 208 Thou/mm3 (140-440); RDW Standard Deviation 45.9 fL (35.1-43.9); Red Blood Count 4.87 Miln/mm3 (4.50-5.90); White Blood Count 14.7 Thou/mm3 (3.8-10.6)
--- NOTE | 2024-03-01 06:16 | PC.NURSE ---
Pt desats on 87% on RA, put him back at 2LPM/NC and O2 sats went up to 93%.
[2024-03-01 06:33] LABS: Alanine Aminotransferase 49 U/L (10-49); Albumin/Globulin Ratio 1.4 (1.2-2.2); Alkaline Phosphatase 81 U/L (46-116); Anion Gap 4 (7-16); Aspartate Amino Transferase 30 U/L (0-34); BUN/Creatinine Ratio 17 Ratio (12-20); Bilirubin,Total 0.4 mg/dL (0.3-1.2); Blood Urea Nitrogen 12 mg/dL (9-23); Calcium 9.1 mg/dL (8.3-10.6); Calcium (Corrected) 9.1 mg/dL (8.5-10.1); Carbon Dioxide 29.6 mMol/L (20.0-31.0); Chloride 101 mMol/L (98-107); Creatinine (Component) 0.7 mg/dL (0.6-1.3); Estimated Creatinine Clearance 135.1 mL/min (>60); Globulin 2.9 gm/dL (2.3-3.5); Glucose 140 mg/dL (74-106); Magnesium 2.3 mg/dL (1.6-2.6); Osmolality,Calculated 271 (275-295); Phosphorous 3.5 mg/dL (2.4-5.1); Potassium 4.4 mMol/L (3.4-5.1); Sodium 135 mMol/L (136-145); Total Protein 6.9 gm/dL (5.7-8.2); eGFR > 60 See Note
[2024-03-01] MEDS: INSULIN LISPRO (AdmeLOG) 1 UNIT/0.01 ML UNIT SC (07:53)
[2024-03-01] MEDS: cefTRIAXone 2 GM in SODIUM CHLORIDE 0.9% (P) 50 ML IV (08:14)
[2024-03-01] MEDS: PANTOPRAZOLE 40 MG TABLET PO (08:14)
[2024-03-01] MEDS: DOCUSATE SOD 100 MG CAPSULE PO (08:14)
[2024-03-01] MEDS: AZITHROMYCIN 250 MG TABLET 500 MG PO (08:14)
--- NOTE | 2024-03-01 09:32 | PC.SS ---
Addendum entered by Vlad Lui 03/01/24 17:22: SS spoke with sukh García, who updated telephone number for Jami Dobbs, spouse, SS spoke with [facility], confirmed pt has bipap and settings are SS with Amadou, exhaust machine operator [id number], spoke with spouse; provider is [facility] [phone] Late entry: Luz confirmed pt is not affiliated with them Original Note: SS sent text to [facility], determine if pt has services through them
[2024-03-01 09:33] LABS: Base Excess 6 (-3-3); HCO3 31 mEq/L (20-26); Inspired Oxygen, FIO2 21 %; O2 Saturation 95 % (91-98); PCO2 47 mmHg (32.0-48.0); PO2 108 mmHg (83-108); pH, Arterial 7.43 (7.35-7.45)
[2024-03-01 09:35] LABS: Allen Test Not Performed; Puncture Site Left Radial
--- NOTE | 2024-03-01 13:22 | ESDS_ITS ---
Planned Discharge Date 03/01/24 DS: Providers Provider Date of admission: 02/27/24 16:18 Primary care physician: Yifan Diego MD Admitting Provider: Joleen Alonso DO Attending Provider on Admission: Joleen Alonso DO Consults: 02/27/24 19:42 Consult to E Learning Developer Routine Comment: Consulting Provider: Compa Francis I Attending Provider on DC: Lavinia Morrison MD Discharging Provider: Jimmy Lugo MD DS: Diagnosis Problem List Completed Was Problem List Reviewed/Reconciled?: Yes Hospital Course Hospital Course Hospital course: Reason for hospitalization: SOB, asthma exacerbation Janes Uribe is 39 yr male with PMH of possible asthma, GLADYS, pulmonary hypertension, obesity who presented to ED on 02/27/24 due SOB with productive cough. Patient's PCP had started patient on albuterol which did not resolve symptoms. While in ED, patient started desaturating to 79% and was subsequently started on high flow oxygen with duoneb breathing treatments. Chest xray showed bilateral lung opacities with bibasliar pneumonia. On physical exam, patient had prominent bilateral expiratory wheezing. He was admitted for acute hypoxic respiratory failure and sepsis due pneumonia. Patient was started on BiPAP, methylprednisone course, and azithromycin/ceftriaxone. Eventually, weaned off of BiPAP to only nocturnal use by day 2. Oxygen saturation was adequately maintained via 2-3 L nasal canula during the day with no SOB while walking. Patient was instructed to continue use of CPAP machine at home due to history of GLADYS. Recommend that he follows up with customer support analyst for PFTs. Patient is now in stable condition and ready for discharge. Recommendations were given as below. Discharge Recommendations: Follow up with PCP within 2 weeks of discharge Advise pulmonology follow up, referral from PCP if needed Advise sleep study, referral from PCP if needed Amoxicillin and Azithromycin antibiotic course prescribed, complete entire course as directed Prednisone taper course prescribed, complete as directed Albuterol inhaler prescribed for wheezing or shortness of breath, follow up with pulmonology or PCP for further management Advise nightly BiPAP until further advised by pulmonology or PCP If any new or worsening symptoms occur such as shortness of breath, advise to seek immediate medical attention with PCP, urgent care, or ED Hospital Diagnoses: # Acute hypoxemic hypercapnic respiratory failure /: # Asthma exacerbation-resolved # Sepsis 2/2 bilateral pneumonia-resolved # History of HTN # Prediabetes #History of obstructive sleep apnea # History of pulmonary hypertension The patient's management plan was discussed with my attending physician Dr. Lugo. Lavinia Morrison MD, PGY-1 Time Spent with Patient Time attestation: Total time spent providing and/or coordinating discharge services: Time spent: Greater than 30 minutes Exam Vital Signs Temp Pulse Resp BP Pulse Ox O2 Del Method O2 Flow Rate 98.0 F 62 18 141/91 H 95 Nasal Cannula 1 03/01/24 12:00 03/01/24 12:00 03/01/24 12:00 03/01/24 12:00 03/01/24 12:00 03/01/24 12:00 03/01/24 12:00 FiO2 30 03/01/24 04:00 Narrative Exam General: Alert and oriented x3. No acute distress, cooperative HEENT: Atraumatic, normocephalic. No JVD noted. Mucosa moist. Cardiovascular: Normal S1 and S2. Regular rate and rhythm. No pitting edema Respiratory: Lungs clear to auscultation, no wheezing, no subcostal retractions Abdomen: Soft, nontender, not distended, normal bowel sounds, obese Skin: Warm to touch, dry, no rashes noted Musculoskeletal: No gross injuries. Able to move all 4 extremities. Neuro: Alert and oriented x3. No focal neuro deficits. Psych: Normal affect and mood Discharge Plan Plan Patient Disposition: HOME (Self Care) Prescriptions/Referrals Prescriptions/Med Rec: New prednisone 5 mg tablets,dose pack 5 mg PO QDAY Qty: 21 0RF albuterol sulfate 90 mcg/actuation aerosol powdr breath activated 1 inh inhalation QID PRN (Reason: shortness of breath or wheezing) Qty: 1 0RF amoxicillin 500 mg capsule 1,000 mg PO TID 2 Days Qty: 12 0RF azithromycin 250 mg tablet 250 mg PO QDAY 2 Days Qty: 2 0RF Referrals: Yifan Diego MD [Primary Care Provider] - Patient/Caregiver Discharge Instructions Discharge Activity: activity as tolerated Other Discharge Activity Instructions:: Follow up with PCP within 2 weeks of discharge Advise pulmonology follow up, referral from PCP if needed Advise sleep study, referral from PCP if needed Amoxicillin and Azithromycin antibiotic course prescribed, complete entire course as directed Prednisone taper course prescribed, complete as directed Albuterol inhaler prescribed for wheezing or shortness of breath, follow up with pulmonology or PCP for further management Advise nightly BiPAP until further advised by pulmonology or PCP If any new or worsening symptoms occur such as shortness of breath, advise to s [place] immediate medical attention with PCP, urgent care, or ED Programe yvette casper de sseguimiento con brambila Doctor de cuidados primarios dentro de las 2 semanas posteriores al shailesh Se le aconseja programar yvette casper de seguimiento con neumolog?a, necesita yvette derivaci?n del brambila Doctor de cuidados primarios. Se le Aconseja un estudio del sultana?o, neccesita yvette derivaci?n de brambila Doctor de cuidados primarios si es necesario Se prescribe un ciclo de antibi?ticos de amoxicilina y azitromicina; complete el ciclo completo seg?n las indicaciones Se prescribe un ciclo de reducci?n gradual de prednisona, compl?telo seg?n las indicaciones Inhalador de albuterol recetado para sibilancias o dificultad para respirar; chin seguimiento con neum?logo o con brambila Doctor de cuidados primarios para un t ratamiento adicional Recomendar BiPAP todas las noches hasta que el neum?logo o brambila Doctor de cuidados primarios lo indiquen mejor. Si se produce alg?n s?ntoma nuevo o que empeora, darshan dificultad para respirar, se recomienda buscar atenci?n m?dica inmediata con brambila Doctor de cuidados primarios , atenci?n de urgencia o el servicio de urgencias. Education Materials: What Is a BPAP?, ED Shortness of Breath (Dyspnea), ED Sleep Apnea, Obstructive Print Language: Croatian Stand Alone Forms: Crystal Award Info., Patient Portal Info Letter Discharge Order Discharge Orders: Discharge (Routine); Ordered 03/01/24 Ordered By: Lavinia Morrison Quality Discharge Quality Measures VTE prophylaxis Attestestation MD Attestation I have examined the patient, reviewed labs and imaging findings, discussed the case with the resident(s), and reviewed entered orders. I agree with the plan of care as outlined in this note. Patient medically cleared for discharge. Continue inhalers and prednisone taper. Short course of antibiotics sent to pharmacy. Continue nocturnal BiPAP . Patient would benefit for outpatient referral to a customer support analyst. Also encourage patient to avoid dust, smoke inhalation, and wearing a mask to prevent COPD/asthma exacerbation. Patient medically cleared for discharge on 03/01/2024. Patient was allowed time to ask questions and all questions answered to satisfaction. Dr. Lugo
[2024-03-03 06:44] LABS: Legionella Ag, EIA, Urine* NOT DETECTED
== END 2024-03-01 16:05 | disposition home or self-care (01) | DRG 139 ==
LOC: SERX 15:44 → SERHOLD 16:50 → S2NX 23:20 → S3SX 02-29 20:31
PROVIDERS: Student in an Organized Health Care Education/Training Program; Admitting Provider Internal Medicine; Emergency Provider Emergency Medicine; PCP Family Medicine; Visit Provider Internal Medicine
DX: J18.9 Pneumonia, unspecified organism (principal); J45.901 Unspecified asthma with (acute) exacerbation; E66.9 Obesity, unspecified; G47.33 Obstructive sleep apnea (adult) (pediatric); G93.40 Encephalopathy, unspecified; E87.29 Other acidosis; I27.20 Pulmonary hypertension, unspecified; J96.02 Acute respiratory failure with hypercapnia; J96.01 Acute respiratory failure with hypoxia; E86.0 Dehydration; I10 Essential (primary) hypertension; Z68.27 Body mass index [BMI] 27.0-27.9, adult; R73.03 Prediabetes
CPT/HCPCS: 36415; 36600; 71045; 71260; 80053; 80307; 80320; 81001; 82803; 83036; 83605; 83735; 83880; 84100; 84145; 84484; 85025; 85610; 86850; 86900; 86901; 87040; 87205; 87400; 87449; 87502; 87634; 87811; 93005; 93225; 93306; 94640; 94644; 94660; 96365; 96366; 96367; 96375; 99291; A4649; A9270; J0696; J1643; J1815; J2543; J2919; J3371; J3490; J7030; J7050; Q9967; G0480; J1644; J3370